=== PATIENT | female | born 1930 | race Hispanic/Latino ===

== ENCOUNTER 2016-08-14 13:36 | Emergency (ER) | payer MEDICARE, BC ==
[2016-08-14 13:37] VITALS: BMI 26.0
[2016-08-14 13:45] VITALS: TEMP 97.9
--- NOTE | 2016-08-14 13:55 | ED PDOC ---
Arrival/HPI - General Chief Complaint: Back Pain Time Seen by Provider: 08/14/16 13:43 Historian: Patient - History of Present Illness Time/Duration: Other (6 days) Symptom Onset: Gradual Symptom Course: Unchanged Quality: Aching Severity Level: Mild Associated Symptoms (Text): 08/14/16 13:53 Patient reports approximately 6 day history of bilateral lower back pain. No radiation of the pain. No abdominal pain nausea vomiting diarrhea. She has had intermittent constipation. No genitourinary symptoms. No numbness tingling or paresthesias. No weakness. No difficulty with gait. Reports that she was doing some exercises with a twisting motion of her lower back, and developed the pain several hours later. No direct blow. Past Medical History - Infectious Disease Hx of Infectious Diseases: None - Tetanus Immunization Tetanus Immunization: Unknown - Cardiac Hx Cardiac Disorders: Yes Hx Atrial Fibrillation: Yes (resolved, as per pt.) - Pulmonary Hx Respiratory Disorders: Yes Hx Chronic Obstructive Pulmonary Disease (COPD): Yes - Neurological Hx Neurological Disorder: No - HEENT Hx HEENT Disorder: No - Renal Hx Renal Disorder: No - Endocrine/Metabolic Hx Endocrine Disorders: Yes Hx Hyperthyroidism: Yes (graves disease) - Hematological/Oncological Hx Blood Disorders: No - Integumentary Hx Dermatological Disorder: No - Musculoskeletal/Rheumatological Hx Musculoskeletal Disorders: Yes Hx Arthritis: Yes - Gastrointestinal Hx Gastrointestinal Disorders: No - Genitourinary/Gynecological Hx Genitourinary Disorders: No - Psychiatric Hx Psychophysiologic Disorder: No Hx Substance Use: No - Surgical History Hx Parathyroidectomy: Yes Other/Comment: parathyroidectomy - Anesthesia Hx Anesthesia: Yes Hx Anesthesia Reactions: No Hx Malignant Hyperthermia: No - Suicidal Assessment Feels Threatened In Home Enviroment: No Family/Social History - Physician Review Nursing Documentation Reviewed: Yes Family/Social History: Unknown Family HX Smoking Status: Former Smoker (Quit smoking 9 years ago) Hx Alcohol Use: Yes Frequency of alcohol use: Socially Hx Substance Use: No Hx Substance Use Treatment: No Allergies/Home Meds Allergies/Adverse Reactions: Allergies No Known Allergies Allergy (Verified 08/14/16 13:44) Home Medications: Home Meds Medication Instructions Recorded Confirmed Methimazole 5 mg PO MWF 09/07/14 08/14/16 Tiotropium [place] [Spiriva] 18 mcg IH DAILY 09/07/14 08/14/16 Aspirin [Ecotrin] 81 mg PO DAILY 08/14/16 08/14/16 Review of Systems - Physician Review All systems were reviewed & negative as marked: Yes - Review of Systems Constitutional: Normal Respiratory: Normal Cardiovascular: Normal Gastrointestinal: Normal, Constipation Genitourinary Female: Normal Neurological: Normal Physical Exam Vital Signs Temp Pulse Resp BP Pulse Ox 08/14/16 14:55 81 16 103/68 98 08/14/16 13:45 97.9 F 88 20 104/69 93 L Temperature: Afebrile Blood Pressure: Normal Pulse: Regular Respiratory Rate: Normal Appearance: Positive for: Well-Appearing, Non-Toxic, Uncomfortable Pain Distress: Mild Mental Status: Positive for: Alert and Oriented X 3 - Systems Exam Head: Present: Atraumatic, Normocephalic Neck: Present: Normal Range of Motion Respiratory/Chest: Present: Clear to Auscultation, Good Air Exchange. No: Respiratory Distress, Accessory Muscle Use Cardiovascular: Present: Regular Rate and Rhythm, Normal S1, S2. No: Murmurs Abdomen: Present: Normal Bowel Sounds. No: Tenderness, Distention, Peritoneal Signs, Rebound, Guarding Back: Present: Normal Inspection, Pain with Leg Raise, Other (Pain with range of motion). No: CVA Tenderness, Midline Tenderness, Paraspinal Tenderness Upper Extremity: Present: Normal Inspection. No: Cyanosis, Edema Lower Extremity: Present: Normal Inspection. No: Edema Neurological: Present: GCS=15, CN II-XII Intact, Speech Normal, Motor Func Grossly Intact, Gait Normal Skin: Present: Warm, Dry, Normal Color. No: Rashes Medical Decision Making ED Course and Treatment: 08/14/16 14:[address] Hahn. Pain has improved post Toradol. Patient is scheduled for a colonoscopy next week in [facility]. We will avoid anti- inflammatories. Prescription for Ultram given. Follow up in ER as needed. Follow -up with PMD. - RAD Interpretation Radiology Orders: 08/14/16 13:51 LS SPINE WITH OBL > 18 YRS OLD [RAD] Stat Lumbosacral spine shows a compression fracture of L2, age indeterminant. DJD. 2Nd Pressman: ED Physician - Medication Orders Current Medication Orders: Discontinued Medications Ketorolac Tromethamine (Toradol) 15 mg IM ONCE ONE Stop: 08/14/16 13:53 Last Admin: 08/14/16 13:58 Dose: 15 mg Disposition/Present on Arrival - Present on Arrival Any Indicators Present on Arrival: No History of DVT/PE: No History of Uncontrolled Diabetes: No Urinary Catheter: No History of Decub. Ulcer: No History Surgical Site Infection Following: None - Disposition Have Diagnosis and Disposition been Completed?: Yes Diagnosis: Low back pain, Lumbar spine strain Disposition: HOME/ ROUTINE Disposition Time: 14:50 Patient Plan: Discharge Condition: IMPROVED Discharge Instructions (ExitCare): Acute Low Back Pain (ED) Additional Instructions: Rest and moist heat. Follow-up with PMD. Follow-up in the ER as needed. Prescriptions: Tramadol HCl [Ultram] 50 mg PO Q6 PRN #15 tab PRN Reason: Pain Referrals: Brook Hahn MD [Primary Care Provider] - Follow up with primary
--- NOTE | 2016-08-14 14:45 | RAD ---
PROCEDURE: Radiographs of the Lumbar Spine. HISTORY: pain COMPARISON: No prior. FINDINGS: BONES: There is reversal of normal lumbar lordosis. There is an age indeterminate superior endplate compression deformity in the L2 vertebral body with approximately 50 percent loss of vertebral height. No retropulsion. There is diffuse bone demineralization. DISC SPACES: There is multilevel degenerative disc disease with anterior osteophytes, reduced disc heights and multilevel facet arthropathy, worse at L4-5. OTHER FINDINGS: There atherosclerotic calcifications in the abdominal aorta. IMPRESSION: 1. Age indeterminate superior endplate compression deformity in the L2 vertebral body. 2. Multilevel degenerative disc disease, worse at L4-5.
[2016-08-14 14:56] VITALS: BP 103/68; PULSE 81; RESP 16; O2SAT 98
== END 2016-08-14 14:59 | disposition home or self-care (01) ==
LOC: ED 13:36
DX: S39.012A Strain of muscle, fascia and tendon of lower back, initial encounter (principal); X50.0XXA Overexertion from strenuous movement or load, initial encounter; Y93.B9 Activity, other involving muscle strengthening exercises; Y92.89 Other specified places as the place of occurrence of the external cause
CPT/HCPCS: 72110; 96372; 99283; J1885

== ENCOUNTER 2016-09-01 12:40 | Inpatient (IN) | payer MEDICARE, BC ==
[2016-09-01 12:40] VITALS: BMI 26.0
--- NOTE | 2016-09-01 13:48 | ED PDOC ---
Arrival/HPI - General Chief Complaint: Back Pain Time Seen by Provider: 09/01/16 13:02 Historian: Patient - History of Present Illness Narrative History of Present Illness (Text): 09/01/16 13:45 86 year old female presents to the emergency department with worsening left lower back pain. Patient states she was going to see her PMD but was unable to get there due to pain. She states she cannot move. Denies trauma or injury. Denies abdominal pain. Time/Duration: > week Symptom Onset: Gradual Symptom Course: Worsening Modifying Factors (Text): None Past Medical History - Provider Review Nursing Documentation Reviewed: Yes - Infectious Disease Hx of Infectious Diseases: None - Tetanus Immunization Tetanus Immunization: Unknown - Reproductive Menopause: Yes - Cardiac Hx Cardiac Disorders: Yes Hx Atrial Fibrillation: Yes (resolved, as per pt.) - Pulmonary Hx Respiratory Disorders: Yes Hx Chronic Obstructive Pulmonary Disease (COPD): Yes - Neurological Hx Neurological Disorder: No - HEENT Hx HEENT Disorder: No - Renal Hx Renal Disorder: No - Endocrine/Metabolic Hx Endocrine Disorders: Yes Hx Hyperthyroidism: Yes (graves disease) - Hematological/Oncological Hx Blood Disorders: No - Integumentary Hx Dermatological Disorder: No - Musculoskeletal/Rheumatological Hx Musculoskeletal Disorders: Yes Hx Arthritis: Yes - Gastrointestinal Hx Gastrointestinal Disorders: No - Genitourinary/Gynecological Hx Genitourinary Disorders: No - Psychiatric Hx Psychophysiologic Disorder: No Hx Substance Use: No - Surgical History Hx Parathyroidectomy: Yes Other/Comment: parathyroidectomy - Anesthesia Hx Anesthesia: Yes Hx Anesthesia Reactions: No Hx Malignant Hyperthermia: No - Suicidal Assessment Feels Threatened In Home Enviroment: No Family/Social History - Physician Review Nursing Documentation Reviewed: Yes Family/Social History: Unknown Family HX Smoking Status: Former Smoker Hx Alcohol Use: Yes Frequency of alcohol use: Socially Hx Substance Use: No Hx Substance Use Treatment: No Allergies/Home Meds Allergies/Adverse Reactions: Allergies No Known Allergies Allergy (Verified 08/14/16 13:44) Home Medications: Home Meds Medication Instructions Recorded Confirmed Methimazole 5 mg PO DAILY 09/07/14 09/01/16 Aspirin [Ecotrin] 81 mg PO DAILY 08/14/16 09/01/16 Tiotropium [Spiriva] 1 puff IH DAILY 09/01/16 09/01/16 Review of Systems - Physician Review All systems were reviewed & negative as marked: Yes - Review of Systems Cardiovascular: absent: Chest Pain Gastrointestinal: absent: Abdominal Pain Musculoskeletal: Back Pain Physical Exam Vital Signs Reviewed: Yes Vital Signs Temp Pulse Resp BP Pulse Ox 09/01/16 13:00 97.8 F 68 18 106/72 93 L Temperature: Afebrile Blood Pressure: Normal Pulse: Regular Respiratory Rate: Normal Appearance: Positive for: Well-Appearing, Non-Toxic, Uncomfortable Mental Status: Positive for: Alert and Oriented X 3 - Systems Exam Head: Present: Atraumatic, Normocephalic Pupils: Present: PERRL Extroacular Muscles: Present: EOMI Conjunctiva: Present: Normal Mouth: Present: Moist Mucous Membranes Neck: Present: Normal Range of Motion Respiratory/Chest: Present: Clear to Auscultation, Good Air Exchange. No: Respiratory Distress, Accessory Muscle Use Cardiovascular: Present: Regular Rate and Rhythm, Normal S1, S2. No: Murmurs Abdomen: Present: Normal Bowel Sounds. No: Tenderness, Distention, Peritoneal Signs Back: Present: Paraspinal Tenderness Upper Extremity: Present: Normal Inspection. No: Cyanosis, Edema Lower Extremity: Present: Normal Inspection. No: Edema Neurological: Present: GCS=15, CN II-XII Intact, Speech Normal Skin: Present: Warm, Dry, Normal Color. No: Rashes Psychiatric: Present: Alert, Oriented x 3, Normal Insight, Normal Concentration Medical Decision Making ED Course and Treatment: Impression: 86 year old female presents to the emergency department with worsening left lower back pain. Differential Diagnosis included but are not limited to: r/o compresion fx. Plan: -- CT's l-spine, t-spine -- Toradol -- Labs -- Reassess and disposition Prior Visits: Notes and results from previous visits were reviewed. Patient last seen in the ED on 08/14/16 for back pain and discharged home. Progress Notes: 09/01/16 18:[address] so bedside, will accept for obs for intractable pain - Lab Interpretations Lab Results: 09/01/16 13:51 09/01/16 16:26 Lab Results 09/01/16 16:26: Sodium 139, Potassium 5.0, Chloride 104, Carbon Dioxide 27, Anion Gap 13, BUN 11, Creatinine 0.8, Est GFR ( Amer) > 60, Est GFR (Non- Af Amer) > 60, Random Glucose 93, Calcium 9.9, Total Bilirubin 0.7, AST 26, ALT 27, Alkaline Phosphatase 88, Total Protein 6.6, Albumin 3.8, Globulin 2.8, Albumin/Globulin Ratio 1.4, Lipase 33 09/01/16 16:26: PT 11.0, INR 1.02, APTT 25.6 09/01/16 13:51: WBC 5.9, RBC 4.59, Hgb 14.7, Hct 43.0, MCV 93.7, MCH 32.0, MCHC 34.2, RDW 12.6, Plt Count 223, MPV 11.0, Gran % 67.1, Lymph % (Auto) 22.4, [place] % (Auto) 7.4 H, Eos % (Auto) 2.4, Baso % (Auto) 0.7, Gran # 3.99, Lymph # 1.3, [place] # 0.4, Eos # 0.1, Baso # 0.04 - RAD Interpretation Radiology Orders: 09/01/16 13:29 LUMBAR SPINE W/O CONTRAST [CT] Stat THORACIC SPINE W/O CONT [CT] Stat - Medication Orders Current Medication Orders: Gabapentin (Neurontin) 300 mg PO HS LETY PRN Reason: Protocol Discontinued Medications Cyclobenzaprine HCl (Flexeril) 10 mg PO HS STA Stop: 09/01/16 17:45 Methylprednisolone 500 mg/ (Sodium Chloride) 100 mls @ 200 mls/hr IVPB ONCE ONE Stop: 09/01/16 17:44 Ketorolac Tromethamine (Toradol) 30 mg IVP STAT STA Stop: 09/01/16 13:31 Last Admin: 09/01/16 13:47 Dose: 30 mg Ketorolac Tromethamine (Toradol) Confirm Administered Dose 30 mg .ROUTE .STK- MED ONE Stop: 09/01/16 13:38 Last Admin: 09/01/16 16:22 Dose: - Scribe Statement The provider has reviewed the documentation as recorded by the Christina Aguilar Provider Scribe Attestation: All medical record entries made by the Scribe were at my direction and personally dictated by me. I have reviewed the chart and agree that the record accurately reflects my personal performance of the history, physical exam, medical decision making, and the department course for this patient. I have also personally directed, reviewed, and agree with the discharge instructions and disposition. Disposition/Present on Arrival - Present on Arrival Any Indicators Present on Arrival: No History of DVT/PE: No History of Uncontrolled Diabetes: No Urinary Catheter: No History of Decub. Ulcer: No History Surgical Site Infection Following: None - Disposition Have Diagnosis and Disposition been Completed?: Yes Diagnosis: Back pain Disposition: HOSPITALIZED Disposition Time: 04:00 Condition: STABLE
[2016-09-01 13:53] LABS: ADD MANUAL DIFF? NO
[2016-09-01 13:55] LABS: BASO # 0.04 K/mm3 (0.0-2.0); BASO % 0.7 % (0.0-3.0); EOS # 0.1 (0.0-0.7); EOS % 2.4 % (1.5-5.0); GRAN # 3.99 (1.4-6.5); GRAN % 67.1 % (50.0-68.0); LYMPH # 1.3 (1.2-3.4); LYMPH % 22.4 % (22.0-35.0); MEAN CELL VOLUME 93.7 fL (80.0-105.0); MEAN CORPUSCULAR HGB CONC 34.2 g/dl (31.0-37.0); MONO # 0.4 (0.1-0.6); MONO % 7.4 % (1.0-6.0); PLATELET COUNT 223 10^3/uL (120.0-450.0); RED CELL DISTRIBUTION WIDTH 12.6 % (11.5-14.5); WHITE BLOOD COUNT 5.9 10^3/ul (4.5-11.0)
--- NOTE | 2016-09-01 15:04 | CT ---
PROCEDURE: CT scan thoracic spine 09/01/2016 HISTORY: Low back pain. COMPARISON: None. TECHNIQUE: Axial computed tomography images were obtained of the thoracic spine without intravenous contrast. Coronal and sagittal reformatted images were created and reviewed. Radiation dose: Total exam DLP = 338.16 mGy-cm. This CT exam was performed using one or more of the following dose reduction techniques: Automated exposure control, adjustment of the mA and/or kV according to patient size, and/or use of iterative reconstruction technique. FINDINGS: VERTEBRAE: Current study reveals no acute compression fractures no retropulsed fragments. Vertebral bodies. Minor chronic appearing anterior stature loss of several upper/mid thoracic segments felt to be degenerative in origin. There is also of few fish-mouth endplate deformities most pronounced along the inferior endplate of the T11 segment alum and to a lesser degree T12-L1 endplates. The probable hemangioma at T1 segment. DISCS/SPINAL CANAL/NEURAL FORAMINA: Mild multilevel degenerative spondylosis. Changes include varying degrees of disc space narrowing with small marginal anterior osteophytes formation, a few of which appear to be bridging. . There are no disc herniations nor significant disc bulges. The overall central bony canal appears adequate. Exit foramina appear adequate so far as can be seen. PARASPINAL SOFT TISSUES: Unremarkable. OTHER FINDINGS: Few small nonspecific mediastinal lymph nodes. Note made of left apical pleural thickening and nodular scarring. . Within this suspected area of scarring however there is an elliptical shaped somewhat central nodule that measures approximately 6.4 mm in greatest dimension consistent with a tiny anterior calcification. Note however that the possibility of developing scar carcinoma not excluded. . There is also a small septated bleb within peripheral nodular peripheral opacity right medial upper lung field Follow-up CT scan in 3 months could be performed to assess stability and exclude the possibility of underlying malignancy. Left adrenal nodule measuring approximately 18.8 mm. Followup at interval recommended to assess stability is well. IMPRESSION: No acute fractures. Minor multilevel degenerative spondylosis without evidence of significant canal compromise nor cord compression. Left apical pleural thickening with nodular parenchymal scarring ; the possibility of scar carcinoma not excluded. . Followup CT scan chest 3 months recommended to assess stability and exclude the possibility of developing malignancy. Note that these findings were discussed with Dr. Childers approximately 3:00 p.m. with written down and read back verification.
--- NOTE | 2016-09-01 16:12 | CT ---
PROCEDURE: CT Lumbar Spine without contrast HISTORY: low back pain COMPARISON: Comparison is made to the previous lumbar spine x-ray dated 08/14/2016 TECHNIQUE: Axial computed tomography images were obtained of the lumbar spine without the use of intravenous contrast. Coronal and sagittal reformatted images were created and reviewed. Radiation dose: Total exam DLP = 367.2 mGy-cm. This CT exam was performed using one or more of the following dose reduction techniques: Automated exposure control, adjustment of the mA and/or kV according to patient size, and/or use of iterative reconstruction technique. FINDINGS: VERTEBRAE: Again seen is moderate compression deformity at the superior endplate and midportion of L2 vertebral body. There is large Schmorl node and mild compression deformity at the inferior endplate of L4 vertebral body. Diffuse osteopenia is also noted. DISCS/SPINAL CANAL/NEURAL FORAMINA: L1-2: There is a small osteophyte disc bulging complex associated with posterior ligament and facet joint hypertrophy which resulting in mild spinal stenosis. L2-3: Small broad-based disc herniation associated with posterior ligament and facet joint hypertrophy which resulting in mild to moderate spinal and neural foramina narrowing bilaterally. L3-4: Small osteophyte disc bulging complex associated with posterior ligament and facet joint hypertrophy which resulting in [id number] spinal and mild bilateral neural foraminal narrowing. L4-5: Small osteophyte disc bulging complex associated with posterior ligament and facet joint hypertrophy which resulting in mild to moderate spinal and mild bilateral neural foraminal narrowing. L5-S1: Small disc bulging without evidence of significant spinal or neural foraminal narrowing. PARASPINAL SOFT TISSUES: Diffuse atherosclerotic disease noted. No evidence of acute pathology in the visualized portion of the paraspinal soft tissue. OTHER FINDINGS: None. IMPRESSION: Age indeterminate likely subacute or old compression deformity at the superior endplate of L2. Large Schmorl node and mild compression deformity at the inferior endplate of L4. Moderate multilevel spondylosis and multilevel osteophyte disc bulging complex associated with posterior ligament and facet joint hypertrophy which resulting in multilevel spinal and neural foraminal narrowing as described above. Moderate osteopenia.
[2016-09-01 16:52] LABS: ALB/GLOB RATIO 1.4 (1.1-1.8); ALKALINE PHOSPHATASE 88 U/L (38-133); ALT/SGPT 27 U/L (7-56); AST/SGOT 26 U/L (15-39); BILIRUBIN,TOTAL 0.7 mg/dL (0.2-1.3); BLOOD UREA NITROGEN 11 mg/dL (7-21); CALCIUM 9.9 mg/dL (8.4-10.5); CARBON DIOXIDE 27 mmol/L (21-33); CHLORIDE 104 mmol/L (98-107); GFR AFRICAN-AMERICAN > 60; GLUCOSE,RANDOM 93 mg/dL (70-110); LIPASE 33 U/L (23-300); SODIUM 139 mmol/L (132-148); TOTAL PROTEIN 6.6 g/dL (5.8-8.3)
[2016-09-01 16:55] LABS: INR 1.02 (0.93-1.08); PARTIAL THROMBOPLASTIN TIME 25.6 Seconds (23.7-30.8)
[2016-09-01] MEDS ORDERED: methylPREDNISolone 500 MG in Sodium Chloride 0.9% 100 ML IVPB ONE (17:43)
--- NOTE | 2016-09-01 18:32 | CON ---
DATE: 09/01/2016 CHIEF COMPLAINT: Low back pain. HISTORY OF PRESENT ILLNESS: This is an 86-year-old woman with history of hyperthyroidism on methimaz ole, history of COPD, history of atrial fibrillation in the past with history of chronic joint and ba ck pain, who presented with worsening lower back, especially radiating down the left leg with associa anil paresthesias aggravated by prolonged positions. The back pain was debilitating and therefore she came into the ER. She had a lumbar CAT scan which showed a moderate compression deformity at the moser perior endplate in the midportion of the L2 vertebral body and there is a large Schmorl's node and mi ld compression deformity at the inferior endplate of L4 vertebral body along with moderate multilevel and multilevel osteophyte disk bulge complex associated with facet joint hypertrophy and multi level spinal neural foraminal narrowing, especially from L3-L5. She had a CAT scan of the thoracic s pine which showed no acute fractures, just multilevel degenerative spondylosis without any evidence o f canal or cord compromise. Currently, she is doing much better. We will admit her for observation for IV steroids, to decrease the inflammatory part of the pain with IV Solu-Medrol and give her Neuro ntin 300 mg p.o. at bedtime for neuropathic pain instead of tramadol. PAST MEDICAL HISTORY: Hyperthyroidism, COPD, history of arthritis. ALLERGIES: No known drug allergies. SOCIAL HISTORY: No illicit drug use, smoking, or EtOH abuse. MEDICATIONS: Reviewed via nurse's reconciliation sheet. REVIEW OF SYSTEMS: A 14-point review of systems is negative except for the HPI. FAMILY HISTORY: Noncontributory. PHYSICAL EXAMINATION: VITAL SIGNS: Temperature 97.8, pulse rate of 68, blood pressure 106/72, respiratory rate of 18, oxyg en saturation 98% via room air. GENERAL: The patient is sitting up in bed in no acute distress. HEENT: Atraumatic, normocephalic. PERRLA. Extraocular muscles intact. NECK: Supple, no JVD, no adenopathy noted. LUNGS: Clear to auscultation. No adventitious sounds. HEART: S1, S2, normal rate and rhythm. No murmurs, rubs, or gallops. ABDOMEN: Soft, nontender, nondistended. Bowel sounds are present. EXTREMITIES: No clubbing, no cyanosis. Peripheral pulses 2+ felt bilaterally. NEUROLOGIC: The patient is alert, oriented to person, place, month and year. Speech is fluent, with out any errors. Cranial nerves II-XII intact. Motor: Slight increased tone throughout. Moves all extremities equally. No pronator drift seen. Sensory: Light touch, pinprick, proprioception and vi bration intact. DTRs are 2+ throughout and 1 at the knees bilaterally and ankles. Coordination: Fi [id number] intact. Gait is deferred for now. LABORATORY DATA: Sodium is 139, potassium 4.5, chloride of 104, carbon dioxide of 27, creatinine of 0.8. Random glucose 93. ASSESSMENT AND PLAN: This is an 86-year-old woman with history of chronic obstructive pulmonary dise ase on Spiriva, history of hyperthyroidism on methimazole and history of arthritis who presented with worsening lower left back pain radiating down the left leg with some paresthesias, aggravated by pro longed positions and sudden movements. She had a CAT scan of the lumbosacral spine which showed mode rate multilevel spondylosis and multilevel osteophyte disk bulging complex associated with posterior ligament and facet hypertrophy, which results in multilevel spinal neural foraminal narrowing ranging from L3-L5 mostly and moderate osteopenia, old compression deformity of the superior endplate of L2 and old mild compression deformity at the inferior endplate of L4, and a CAT scan of the thoracic spi ne showed just mild multilevel spondylosis without any cord compromise. At this time, we will admit her for observation for lumbosacral neuritis and recommend: 1. One dose of IV Solu-Medrol 500. 2. We will give her gabapentin 300 mg p.o. at bedtime. 3. We will also give her a muscle relaxant such as cyclobenzaprine 10 mg p.o. at bedtime for her rico k pain. 4. She will get outpatient physical and occupational therapy for underlying lumbosacral neuritis aft er deconditioned state. Thank you for this consult. Vamsi Collins MD cc: [id number] TT: 09/01/2016 18:31:15 Confirmation # [id number] Dictation # [id number] mn
--- NOTE | 2016-09-01 20:35 | HP ---
HISTORY OF PRESENT ILLNESS: This is an 86-year-old female brought to [facility] by her s on. She has been experiencing increasing back pain radiating down the left leg to the point where kiko aceves has been having difficulty managing and caring for herself at home. PAST MEDICAL HISTORY: She has a past medical history of paroxysmal atrial fibrillation, COPD, hypert hyroidism. ALLERGIES: She has got no known allergies. HOME MEDICATIONS: Consist of tramadol 50 mg q. 6 hours p.r.n., Spiriva 1 puff daily, methimazole 5 m g daily, and Ecotrin 81 mg daily. SOCIAL HISTORY: She is a nonsmoker, nondrinker, nondrug user. REVIEW OF SYSTEMS: Fourteen systems are reviewed. Pertinent findings as stated above in the history and physical. PHYSICAL EXAMINATION: VITAL SIGNS: Show a temp of 98.9, pulse is 68, blood pressure is 106/72, oxygen saturation is 93% on room air. GENERAL: She is alert and oriented x 3. NECK: Supple. LUNGS: Show diminished breath sounds at the bases. HEART: Has an S1, S2 rhythm. ABDOMEN: Soft with positive bowel sounds. EXTREMITIES: No evidence of edema. There is, as expressed by the patient, a tenderness along the lo wer lumbar spine, over the left flank and left gluteal area, with radiation down the leg. LABORATORY DATA: Shows a CBC: WBC is 5.9, RBC is 4.59, hemoglobin 14.7, hematocrit is 43, platelet count is 223. Her PT is 11 with an INR of 1.02. PTT is 25.6. Chemistries show electrolytes to be n ormal. Her BUN is 11, creatinine is 0.8. Liver functions are normal. Lipase is 33. DIAGNOSTIC DATA: The patient had a CT of the thoracic spine, which is read by the radiologist as regino wing a 6.4 mm elliptical shape, central nodule, in the left apical pleural thickening and multilevel degenerative spondylosis. No acute fractures. On the lumbar spine it is noted that there are old co mpression fractures at L2 and L4 with multilevel degenerative changes. IMPRESSION: Is an 86-year-old female with progressive increasing pain and difficulty managing and ca ring for herself at home secondary to the pain, with above noted findings. The patient required Naya dol in the Emergency Room for comfort. Will have the patient be seen by neurology. Plan on an infla mmatory pain management protocol. Brook Hahn MD cc: [id number] TT: 09/01/2016 20:34:57 dn
[2016-09-02] MEDS: methIMAzole 5 MG TAB PO SCH (09:44)
[2016-09-02] MEDS ORDERED: Tiotropium 18 mcg Cap For Inhalation IH SCH (10:00)
[2016-09-02 10:38] LABS: PH,URINE 5.5 (4.7-8.0); URINE BILIRUBIN SMALL (NEGATIVE); URINE BLOOD TRACE-INTACT (NEGATIVE); URINE GLUCOSE (UA) NEGATIVE (NEGATIVE); URINE KETONE 15 mg/dL (NEGATIVE); URINE LEUKOCYTE ESTERASE NEGATIVE Leu/uL (NEGATIVE); URINE PROTEIN TRACE mg/dL (<30 mg/dL)
[2016-09-02 10:39] LABS: URINE APPEARANCE CLEAR (CLEAR); URINE COLOR YELLOW (YELLOW)
[2016-09-02 10:46] LABS: URINE CALCIUM OXALATE CRYSTALS FEW /hpf; URINE RBC 0 - 2 /hpf (0-2)
[2016-09-02 10:47] LABS: URINE BACTERIA MOD (NEG)
[2016-09-02] MEDS: Tiotropium 18 mcg Cap For Inhalation IH SCH (10:55)
[2016-09-02] MEDS ORDERED: methylPREDNISolone 500 MG in Sodium Chloride 0.9% 100 ML IVPB ONE (15:06)
--- NOTE | 2016-09-02 15:28 | PN ---
DATE: 09/02/2016 CHIEF COMPLAINT: Follow up for low back pain. SUBJECTIVE: The patient is seen and examined at bedside. Her low back pain was doing much better wi th 1 dose of IV steroids, though she still has intermittent back pain at this time, but no neuropathi c symptoms. She will be getting another dose of IV Solu-Medrol since she got significant relief and will need physical therapy evaluation prior to her discharge. PAST MEDICAL HISTORY: Hyperthyroidism, COPD, history of arthritis. ALLERGIES: No known drug allergies. SOCIAL HISTORY: No illicit drug use, smoking, or ETOH abuse. CURRENT MEDICATIONS: Reviewed via nurse's reconciliation sheet. REVIEW OF SYSTEMS: A 14-point review of systems negative except for the HPI. FAMILY HISTORY: Noncontributory. PHYSICAL EXAMINATION: VITAL SIGNS: Temperature 97.8, pulse rate 66, blood pressure 130/74, respiratory rate 18, oxygen sat uration 95% via room air. GENERAL: The patient is sitting up in bed in no acute distress. HEENT: Atraumatic, normocephalic. PERRLA. Extraocular muscles intact. NECK: Supple, no JVD, no adenopathy noted. LUNGS: Clear to auscultation. No adventitious sounds. HEART: S1, S2, normal rate and rhythm. No murmurs, rubs, or gallops. ABDOMEN: Soft, nontender, nondistended. Bowel sounds are present. EXTREMITIES: No clubbing. No cyanosis. Peripheral pulses 2+ felt bilaterally. NEUROLOGIC: The patient is alert, oriented to person, place, month and year. Speech is fluent witho ut any errors. Cranial nerves II-XII are intact. MOTOR: Slight increased tone throughout. Moves all extremities equally. No pronator drift seen. SENSORY: Light touch, pinprick, proprioception, and vibrations intact. DTRs 2+ throughout and 1 at the ankles and knees bilaterally. COORDINATION: [id number]-[id number] intact. GAIT: Deferred for now. LABORATORY DATA: Unremarkable. ASSESSMENT AND PLAN: This is an 86-year-old woman with history of chronic obstructive pulmonary dise ase, on Spiriva, history of hyperthyroidism on methimazole, and history of arthritis, who presented w ith worsening left lower back pain radiating down to the left buttock, down the left leg with some pa resthesias, aggravated by prolonged positions and sudden movements. CAT scan of the lumbosacral spin e showed multilevel spondylosis and multilevel osteophyte-disk bulging complexes associated with post erior ligament and facet hypertrophy which results in multilevel spinal and neural foraminal narrowin g ranged from L3-L5 and moderate osteopenia, old compression deformity at the superior endplate of L2 and old mild compression deformity at the inferior endplate of L4. CAT scan of the thoracic spine s howed multilevel mild spondylosis without any cord compromise. At this time, she does have evidence of lumbosacral neuritis which improved with 1 dose of IV Solu-Medrol and will be given another dose. Recommend: 1. One more round of IV Solu-Medrol 500. 2. Gabapentin continue 300 mg p.o. at bedtime for neuropathic pain relief. 3. Continue with cyclobenzaprine 10 mg at bedtime p.r.n. for back pain. 4. Will need physical and occupational therapy for underlying lumbosacral neuritis and deconditioned state and will need also PT/OT as an outpatient as well. Please discuss with case management for fu rther outpatient facilities for physical therapy. Thank you for this followup. She can follow me as an outpatient. Vamsi Collins MD cc: [id number] TT: 09/02/2016 15:28:17 Confirmation # [id number] Dictation # [id number] tn
--- NOTE | 2016-09-02 18:49 | PN ---
DATE: 09/02/2016 An 86-year-old female who lives alone at home and brought to [facility] because of intractable back pain and inability for several days to care for herself. Nurses state that there were no partic ular problems during the night. The patient states that she is slightly more comfortable than she wa s the day before. PHYSICAL EXAMINATION: VITAL SIGNS: Temp is 97.7, her blood pressure is 107/53, oxygen saturation is 93% on room air. GENERAL: She is alert and oriented x 3. LUNGS: Clear. HEART: Regular S1, S2 rhythm. ABDOMEN: Soft with positive bowel sounds. EXTREMITIES: Show no evidence of edema. Urinalysis showed moderate bacteria. Will request a urine culture. Discussion with neurology. The patient will receive another dose of methylprednisolone. Physical therapy evaluation is pending. I have also discussed with the patient her CT findings and the dorsal CT study which showed areas of th e lung with a possible nodule. She has agreed to rule out getting a pulmonary opinion while she is h ere in the hospital. She states that she still does not feel comfortable enough to be on her own and will continue current level of care at this time. Brook Hahn MD cc: [id number] TT: 09/02/2016 18:48:39 Confirmation # [id number] Dictation # [id number] darryn
--- NOTE | 2016-09-03 09:38 | CON ---
DATE: 09/03/2016 REASON FOR CONSULTATION: Pulmonary nodule. REFERRING PHYSICIAN: Dr. Hahn. HISTORY OF PRESENT ILLNESS: The patient is an 86-year-old female with past medical history significant for chronic obstructive pulmonary disease, positive extensive smoking history, chronic back pain, who presents to [facility]] with worsening/intractable back pain for the past 2 days. In the Emergency Room, the patient stated that she had trouble ambulating. She was thus admitted for additional evaluation and treatment. There is no history of shortness of breath at rest or dyspnea on exertion. There is a history of chronic cough with minimal sputum production -- which has not changed recently. There is no history of chest pain, coughing up of blood or chest pain -- made worse with deep respirations. There is no history of temperatures, chills or infectious exposure. There is no history of night sweats, weight loss or appetite change prior to the above events. No history of calf pains. No history of syncope or diaphoresis. No history of recent travel. REVIEW OF SYSTEMS: No history of nausea, vomiting or diarrhea. No acute urinary symptoms. Rest of the review of systems is negative. ALLERGIES: No known allergies. SOCIAL HISTORY: Positive for extensive tobacco usage -- stopped 8 years ago. No alcohol. FAMILY HISTORY: No inheritable diseases. HOME MEDICATIONS: Include Ultram, Spiriva, methimazole, Ecotrin. PHYSICAL EXAMINATION: GENERAL: The patient appears comfortable at rest. She is not short of breath. She is not using accessory muscles for breathing. VITAL SIGNS: Temperature is 97.7, pulse 60, respirations 18, blood pressure 107 /53. Oxygen saturation on room air is 93-95%. HEENT: Normocephalic, atraumatic. NECK: No JVD. CARDIOVASCULAR: Systolic ejection murmur at the lower left sternal border. No S3 gallop. LUNGS: Clear bilaterally. EXTREMITIES: No clubbing, cyanosis, or edema. Calves are nontender to palpation. GASTROINTESTINAL: Abdomen is soft, nontender, nondistended. Bowel sounds are positive. SKIN: No acute rash. NEUROLOGIC: Limited at the present time. PERTINENT LABORATORY DATA: Thoracic spine CAT scan was done. On this CAT scan , there is a small area of scar/nodule in the left apex. There are no other significant abnormalities seen. Lumbar spine without contrast was also done. There are compression deformities in some of the lumbar vertebrae. CBC: White count 5.9, hemoglobin 14.7, hematocrit 43.0, platelets of 223. Complete metabolic profile is completely within normal limits. IMPRESSION: 1. Left apical nodule/scar. 2. Chronic obstructive pulmonary disease. 3. Intractable back pain. 4. Compression deformities -- lumbar vertebrae. PLAN: The patient presents to [facility]3] with a 2-day history of intractable back pain. She also had trouble ambulating at home. She was thus admitted for additional evaluation. As above, a thoracic spine CAT scan was done. On this CAT scan, a left apical nodule/scar was noted. I will order a dedicated CAT scan of the chest -- for further evaluation. On physical exam, the patient's lungs are clear. There is no significant alveolar arterial gradient. I will continue with the Spiriva for now. As above, the patient offers no new or significant pulmonary symptoms. I did discuss the CAT scan findings with the patient at length. The patient is well aware that I am ordering a dedicated CAT scan of the chest. I have also given the patient my number/information for followup with me-- as an outpatient. She fully agrees. I would continue with the neurologic evaluation and pain control. The patient is feeling better this morning. I will discuss the above with Dr. Hahn. Thank you very much for this pulmonary consultation. Wellington Greene MD cc: [id number] TT: 09/03/2016 09:37:13 Confirmation # [id number] Dictation # [id number] murphy MTDD
[2016-09-03] MEDS: Tiotropium 18 mcg Cap For Inhalation IH SCH (09:44)
[2016-09-03] MEDS: methIMAzole 5 MG TAB PO SCH (09:45)
--- NOTE | 2016-09-03 09:47 | PN ---
DATE: 09/03/2016 An 86-year-old female in bed this morning states that she is having still discomfort in her lower r[place] k. She feels that it is difficult to manipulate and get out of bed comfortably. Her son is at the [facility]. PHYSICAL EXAMINATION: VITAL SIGNS: Her temp is 98.1, her blood pressure is 132/60. Respiratory rate is 20, oxygen saturat ion 96% on room air. GENERAL: She is alert and oriented x 3. NECK: Supple. LUNGS: Clear. HEART: An S1, S2 rhythm. ABDOMEN: Soft with positive bowel sounds. EXTREMITIES: Show no evidence of edema. ASSESSMENT AND PLAN: The patient is receiving steroid therapy and pain management for underlying lum bar disk disease with compression fracture history. She was seen by pulmonary this morning who has r equested a CT of the chest because of an abnormality found on the x-ray. She has underlying history of chronic obstructive pulmonary disease and hyperthyroidism. Physical therapy has been asked to wor k with the patient and I discussed with the patient the fact that she does not feel comfortable leavi ng and caring for herself at this time. We will review further care with neurology. She is currently on Ultram 50 mg q. 6 p.r.n., Tapazole 5 mg daily, Spiriva 18 mcg daily, Pepcid 20 mg b.i.d. and Neurontin 300 mg at bedtime. Brook Hahn MD cc: [id number] TT: 09/03/2016 09:47:27 Confirmation # [id number] Dictation # [id number] tn
--- NOTE | 2016-09-03 10:37 | CT ---
PROCEDURE: CT Chest without contrast HISTORY: pulmonary nodules COMPARISON: None. TECHNIQUE: Contiguous axial images were obtained through the chest without intravenous contrast enhancement. Sagittal and coronal reconstructions were performed. Radiation dose (DLP): 357 mGy-cm. This CT exam was performed using one or more of the following dose reduction techniques: Automated exposure control, adjustment of the mA and/or kV according to patient size, and/or use of iterative reconstruction technique. FINDINGS: LUNGS: Diffuse mild centrilobular emphysema. MEDIASTINUM: Unremarkable thoracic aorta. No aneurysm. Normal sized heart. Main pulmonary artery unremarkable. No vascular congestion. No lymphadenopathy. PLEURA: No pleural fluid. No pneumothorax. BONES: No fracture. No destructive lesion. UPPER ABDOMEN: Grossly unremarkable. OTHER FINDINGS: None. IMPRESSION: Diffuse mild centrilobular emphysema.
--- NOTE | 2016-09-04 09:06 | PN ---
DATE: 09/04/2016 The patient was seen and examined at bedside. She reports no pulmonary complaints today. She is not short of breath and not coughing. PHYSICAL EXAMINATION: VITAL SIGNS: Her temperature is 98, pulse 60, respirations 18, blood pressure 110/60. Oxygen satura tion on room air is 94%. HEAD, EARS, NOSE AND THROAT: Within normal limits. NECK: Supple with no jugular vein distention. CHEST: Symmetrical. HEART: S1, S2. No S3. Regular. LUNGS: Few scattered rhonchi. No wheezing bilaterally. GASTROINTESTINAL: Soft, nontender with no organomegaly. SKIN: No acute skin rashes. NEUROLOGIC: Limited at present time. ASSESSMENT: 1. Left apical nodule/scar. 2. Chronic obstructive pulmonary disease. 3. Compression fractures of vertebrae. PLAN: The patient's chief complaint is back pain. It is most likely related to the compression frac tures. CT scan indicates the presence of apical nodule/scar. Currently, she is on Spiriva, doing we ll. Her chronic obstructive pulmonary disease is well controlled. After obtaining a dedicated CT sc an of chest, will decide if further workup or just radiologic workup is warranted for the left apical abnormalities. Willi Ch MD cc: [id number] TT: 09/04/2016 09:06:19 Confirmation # [id number] Dictation # [id number] mn
[2016-09-04] MEDS: methIMAzole 5 MG TAB PO SCH ×2 (09:17→09:28)
[2016-09-04] MEDS: Tiotropium 18 mcg Cap For Inhalation IH SCH (09:19)
--- NOTE | 2016-09-04 18:02 | PN ---
DATE: 09/04/2016 This is an 86-year-old female in bed this morning. Nursing staff relates that there were no particul ar problems during the night. The patient states that she is still having some back pain and finds s ome difficulty in being independent. PHYSICAL EXAMINATION: VITAL SIGNS: Her temp is 97, her blood pressure is 114/60, pulse is 60. Oxygen saturation 94% on ro om air. GENERAL: She is alert and oriented x 3. NECK: Supple. There is no JVD. LUNGS: Clear. HEART: Regular S1, S2 rhythm. ABDOMEN: Soft with positive bowel sounds. EXTREMITIES: No evidence of edema. ASSESSMENT AND PLAN: The patient is on pain management and muscle relaxer for compression fractures of the lumbar spine with degenerative disk disease. She is being followed by pulmonary for a scar in the left apical lung area based on CAT scan and will plan to follow up with pulmonary. She is recei ving respiratory treatments for her chronic obstructive pulmonary disease. We will continue current care with physical therapy. We will discuss with family support structure upon patient leaving the h ospital and level of independence will determine whether the patient can be at home alone or will nee d assistance, or will have to live with family members. Brook Hahn MD cc: [id number] TT: 09/04/2016 18:01:34 Confirmation # [id number] Dictation # [id number] mode
[2016-09-05 07:37] VITALS: BP 138/86; PULSE 62; RESP 20; TEMP 97.8; O2SAT 96
[2016-09-05] MEDS: methIMAzole 5 MG TAB PO SCH (09:38)
[2016-09-05 09:43] LABS: URINE BILIRUBIN NEGATIVE (NEGATIVE); URINE BLOOD NEGATIVE (NEGATIVE); URINE GLUCOSE (UA) NEGATIVE (NEGATIVE); URINE KETONE NEGATIVE (NEGATIVE); URINE LEUKOCYTE ESTERASE TRACE Leu/uL (NEGATIVE); URINE PROTEIN NEGATIVE mg/dL (<30 mg/dL); URINE UROBILINOGEN 0.2 E.U./dL (<1 E.U./dL)
[2016-09-05 09:45] LABS: URINE APPEARANCE CLEAR (CLEAR); URINE COLOR YELLOW (YELLOW)
[2016-09-05] MEDS: Tiotropium 18 mcg Cap For Inhalation IH SCH (09:45)
[2016-09-05 09:54] LABS: URINE RBC 0 - 2 /hpf (0-2); URINE WBC 0 - 2 /hpf (0-6)
[2016-09-05 09:55] LABS: URINE BACTERIA FEW (NEG)
== END 2016-09-05 15:35 | disposition home or self-care (01) | DRG 552 ==
LOC: ED 12:40 → ERH 16:58 → 5RNO 20:15 → OBSVTOIN 09-02 16:14
PROVIDERS: ADMIT Internal Medicine; ATTEND Internal Medicine
DX: M51.16 Intervertebral disc disorders with radiculopathy, lumbar region (principal); M48.56XA Collapsed vertebra, not elsewhere classified, lumbar region, initial encounter for fracture; M47.894 Other spondylosis, thoracic region; I48.0 Paroxysmal atrial fibrillation; J44.9 Chronic obstructive pulmonary disease, unspecified; E05.00 Thyrotoxicosis with diffuse goiter without thyrotoxic crisis or storm; R91.1 Solitary pulmonary nodule; Z87.891 Personal history of nicotine dependence; Z79.82 Long term (current) use of aspirin

== ENCOUNTER 2017-08-17 18:24 | Inpatient (IN) | payer MEDICARE, BC ==
[2017-08-17 18:25] VITALS: BMI 26.0
[2017-08-17] MEDS ORDERED: Levalbuterol 1.25 MG/3 ML Inhal Soln UD IH STA (19:00)
--- NOTE | 2017-08-17 19:06 | ED PDOC ---
Arrival/HPI - General Historian: Patient - History of Present Illness Symptom Onset: Gradual Symptom Course: Improving - General Chief Complaint: Weakness/Neurological Deficit Time Seen by Provider: 08/17/17 18:25 - History of Present Illness Narrative History of Present Illness (Text): 08/17/17 19:01 Pt is an 87 yo F with PMH of paroxysmal atrial fibrillation, COPD, and hyperthyroidism presents to ED with a 5 day history of SOB, productive cough, and fatigue. Patient states that cough is productive with green phlegm. Patient reports one fever 4 days ago at 100.8 F. Patient states that she was prescribed Levaquin with some improvement of her symptoms. Patient was scheduled to see her PMD, Dr. Hahn, today, but could not make it due to fatigue. Patient states that she is short of breath with any activity and has a difficult time ambulating. At baseline, patient states she is able to walk without any shortness of breath. Patient was previously on metoprolol and eliquis for a. fib , but was taken off about 1 year ago once her thyroid function normalized on methimazole. Methamizole was discontinued about 1 year ago. Currently, patient denies any CP, n/v/d, abdominal pain, fever, chills, DIAZ, or dizziness. PMD: Brook Hahn 08/17/17 20:46 (Fredrick Rodriguez) Past Medical History - Provider Review Nursing Documentation Reviewed: Yes - Infectious Disease Hx of Infectious Diseases: None - Tetanus Immunization Tetanus Immunization: Unknown - Cardiac Hx Cardiac Disorders: Yes Hx Atrial Fibrillation: Yes - Pulmonary Hx Respiratory Disorders: Yes Hx Chronic Obstructive Pulmonary Disease (COPD): Yes - Neurological Hx Neurological Disorder: No - HEENT Hx HEENT Disorder: No - Renal Hx Renal Disorder: No - Endocrine/Metabolic Hx Endocrine Disorders: Yes Hx Hyperthyroidism: Yes (graves disease) - Hematological/Oncological Hx Blood Disorders: No - Integumentary Hx Dermatological Disorder: No - Musculoskeletal/Rheumatological Hx Musculoskeletal Disorders: Yes Hx Arthritis: Yes - Gastrointestinal Hx Gastrointestinal Disorders: No - Genitourinary/Gynecological Hx Genitourinary Disorders: No - Psychiatric Hx Psychophysiologic Disorder: No Hx Substance Use: No - Surgical History Hx Parathyroidectomy: Yes Other/Comment: parathyroidectomy - Anesthesia Hx Anesthesia: Yes Hx Anesthesia Reactions: No Hx Malignant Hyperthermia: No - Suicidal Assessment Feels Threatened In Home Enviroment: No Family/Social History - Physician Review Nursing Documentation Reviewed: Yes Family/Social History: No Known Family HX Smoking Status: Former Smoker Hx Alcohol Use: Yes Hx Substance Use: No Hx Substance Use Treatment: No Allergies/Home Meds Allergies/Adverse Reactions: Allergies Penicillins Allergy (Verified 08/17/17 18:26) RASH Home Medications: Home Meds Medication Instructions Recorded Confirmed Aspirin [Ecotrin] 81 mg PO DAILY 08/14/16 08/17/17 Tiotropium [Spiriva] 1 puff IH DAILY 09/01/16 08/17/17 Review of Systems - Physician Review All systems were reviewed & negative as marked: Yes (12 point ROS reviewed and is negative other than what is stated in HPI.) Physical Exam Vital Signs Reviewed: Yes Temperature: Afebrile Blood Pressure: Normal Pulse: Tachycardic Respiratory Rate: Normal Appearance: Positive for: Non-Toxic Pain Distress: None Mental Status: Positive for: Alert and Oriented X 3 - Systems Exam Head: Present: Atraumatic, Normocephalic Pupils: Present: PERRL Extroacular Muscles: Present: EOMI Conjunctiva: Present: Normal Mouth: Present: Moist Mucous Membranes Neck: Present: Normal Range of Motion Respiratory/Chest: Present: Wheezes, Rales (b/l bases), Rhonchi. No: Clear to Auscultation, Respiratory Distress, Accessory Muscle Use Cardiovascular: Present: Irregular Rhythm, Tachycardic. No: Murmurs, Rub, Gallop Abdomen: No: Tenderness, Distention, Rebound, Guarding Back: Present: Normal Inspection Upper Extremity: Present: Normal Inspection. No: Cyanosis, Edema Lower Extremity: Present: Normal Inspection. No: Edema Neurological: Present: GCS=15, CN II-XII Intact, Speech Normal Skin: Present: Warm, Dry, Normal Color. No: Rashes Psychiatric: Present: Alert, Oriented x 3, Normal Insight, Normal Concentration Vital Signs Temp Pulse Resp BP Pulse Ox 08/17/17 21:19 97.6 F 117 H 18 119/56 L 95 08/17/17 20:13 118/52 L 08/17/17 20:09 97.6 F 108 H 20 118/52 L 95 08/17/17 19:32 97.6 F 87 18 103/65 99 08/17/17 19:18 108 H 129/54 L 08/17/17 18:27 97.6 F 110 H 17 125/83 91 L Medical Decision Making ED Course and Treatment: 08/17/17 19:09 87 yo F presents to ED with SOB, productive cough, and fatigue. Plan: - CBC, CMP, Coags - Cardiac Iso - BNP - TSH, Free T4 - CXR - EKG - UA - Cardizem IVP - Xopenex - Solumedrol - Reassess and disposition EKG reviewed, showed atrial fibrillation with rapid ventricular response. Rate 160. 08/17/17 20:02 CXR reviewed by myself showed no active disease. BNP 4300, Lasix 20 mg IVP given. CHADSVASC 4. Therapeutic lovenox given. Patient was discussed with Dr. Brook Hahn, who agrees with plan and accepts admission under his service. Dr. Hahn requests ICU evaluation. Discussed patient with Dr. Flor Victor, who will evaluate patient for ICU admission. residential program manager was notified. 08/17/17 22:20 Dr. Victor accepts patient to ICU. (Fredrick Rodriguez) 08/18/17 20:46 pt seen with resident. afib with rvr. chf, copd. accepted by icu. (Tino Childers ) - Lab Interpretations Lab Results: 08/17/17 19:25 08/17/17 19:25 Lab Results 08/17/17 19:25: Free T4 4.54 H, TSH 3rd Generation < 0.02 L 08/17/17 19:25: Sodium 142, Potassium 4.8, Chloride 101, Carbon Dioxide 28, Anion Gap 17, BUN 18, Creatinine 0.7, Est GFR ( Amer) > 60, Est GFR (Non- Af Amer) > 60, Random Glucose 114 H, Calcium 9.6, Magnesium 1.9, Total Bilirubin 0.6, AST 39 H, ALT 30, Alkaline Phosphatase 102, Lactate Dehydrogenase 345, Total Creatine Kinase 35, Troponin I < 0.01, NT-Pro-B Natriuret Pep 4300 H, Total Protein 6.6, Albumin 3.6, Globulin 2.9, Albumin/ Globulin Ratio 1.2 08/17/17 19:25: PT 14.5 H, INR 1.27 H, APTT 25.0 L 08/17/17 19:25: WBC 8.1 D, RBC 4.79, Hgb 14.6, Hct 42.7, MCV 89.1 D, MCH 30.5 , MCHC 34.2, RDW 11.6, Plt Count 272, MPV 10.6, Gran % 75.6 H, Lymph % (Auto) 12.4 L, [place] % (Auto) 11.6 H, Eos % (Auto) 0.2 L, Baso % (Auto) 0.2, Gran # 6.14 , Lymph # (Auto) 1.0 L, [place] # (Auto) 0.9 H, Eos # (Auto) 0.0, Baso # (Auto) 0.02 - RAD Interpretation Radiology Orders: 08/17/17 18:55 CHEST PORTABLE [RAD] Stat - Medication Orders Current Medication Orders: Aspirin (Ecotrin) 81 mg PO DAILY [facility] Last Admin: 08/18/17 09:10 Dose: 81 mg Diltiazem HCl (Cardizem) 30 mg PO Q6H [facility] Last Admin: 08/18/17 15:51 Dose: 30 mg MAR Pulse and Blood Pressure Document 08/18/17 15:51 [facility] (Rec: 08/18/17 15:51 [facility] [place]) Pulse Pulse Rate (60-90) 86 Blood Pressure Blood Pressure (100/60-150/90) 126/56 Enoxaparin Sodium (Lovenox) 65 mg SC BID [facility] PRN Reason: Protocol Last Admin: 08/18/17 17:27 Dose: 65 mg Subcutaneous Administrations Document 08/18/17 17:27 [facility] (Rec: 08/18/17 17:27 [facility] [id number]) Injection Site MAR Injection Site Right Arm Charges for Administration # of Subcutaneous Administrations 1 Levalbuterol HCl (Xopenex) 1.25 mg IH TIDRESP [facility] Last Admin: 08/18/17 19:44 Dose: 1.25 mg Levalbuterol HCl (Xopenex) 1.25 mg IH [id number] PRN PRN Reason: Shortness of Breath Methylprednisolone (Solu-Medrol) 40 mg IVP Q12 [facility] Last Admin: 08/18/17 09:10 Dose: 40 mg IVP Administration Document 08/18/17 09:10 [facility] (Rec: 08/18/17 09:10 [facility] [place]) Charges for Administration # of IVP Administrations 1 Metoprolol Tartrate (Lopressor) 25 mg PO BID [facility] Last Admin: 08/18/17 17:27 Dose: 25 mg MAR Pulse and Blood Pressure Document 08/18/17 17:27 [facility] (Rec: 08/18/17 17:27 [facility] [id number]) Pulse Pulse Rate (60-90) 91 Blood Pressure Blood Pressure (100/60-150/90) 126/75 Propylthiouracil (Propylthiouracil) 100 mg PO TID [facility] Last Admin: 08/18/17 17:27 Dose: 100 mg Discontinued Medications Diltiazem HCl (Cardizem) 15 mg IVP STAT STA Stop: 08/17/17 19:01 Last Admin: 08/17/17 19:18 Dose: 15 mg IVP Administration Document 08/17/17 19:18 [facility] (Rec: 08/17/17 19:19 [facility] [id number]) Charges for Administration # of IVP Administrations 1 MAR Pulse and Blood Pressure Document 08/17/17 19:18 [facility] (Rec: 08/17/17 19:19 [facility] [id number]) Pulse Pulse Rate (60-90) 108 Blood Pressure Blood Pressure (100/60-150/90) 129/54 Diltiazem HCl (Cardizem) 10 mg IVP STAT STA Stop: 08/18/17 09:02 Last Admin: 08/18/17 09:07 Dose: 10 mg IVP Administration Document 08/18/17 09:07 [facility] (Rec: 08/18/17 09:08 [facility] Charges for Administration # of IVP Administrations 1 MAR Pulse and Blood Pressure Document 08/18/17 09:07 [facility] (Rec: 08/18/17 09:08 [id number] Pulse Pulse Rate (60-90) 162 Blood Pressure Blood Pressure (100/60-150/90) 116/81 Enoxaparin Sodium (Lovenox) 65 mg SC STAT [facility] PRN Reason: Protocol Stop: 08/17/17 19:57 Last Admin: 08/17/17 20:05 Dose: 65 mg Subcutaneous Administrations Document 08/17/17 20:05 [facility] (Rec: 08/17/17 20:06 [facility] [id number]) Injection Site MAR Injection Site Left Abdomen Charges for Administration # of Subcutaneous Administrations 1 Enoxaparin Sodium (Lovenox) 65 mg SC DAILY [facility] PRN Reason: Protocol Furosemide (Lasix) 20 mg IVP STAT STA Stop: 08/17/17 19:56 Last Admin: 08/17/17 20:13 Dose: 20 mg MAR Blood Pressure Document 08/17/17 20:13 [facility] (Rec: 08/17/17 20:14 [facility] [id number]) Blood Pressure Blood Pressure (100/60-150/90) 118/52 IVP Administration Document 08/17/17 20:13 [facility] (Rec: 08/17/17 20:14 [facility] [id number]) Charges for Administration # of IVP Administrations 1 Levalbuterol HCl (Xopenex) 1.25 mg IH STAT STA Stop: 08/17/17 19:01 Last Admin: 08/17/17 19:18 Dose: 1.25 mg Methylprednisolone (Solu-Medrol) 125 mg IVP STAT STA Stop: 08/17/17 19:01 Last Admin: 08/17/17 19:19 Dose: 125 mg IVP Administration Document 08/17/17 19:19 [facility] (Rec: 08/17/17 19:19 [facility] [id number]) Charges for Administration # of IVP Administrations 1 Propranolol HCl (Inderal) 10 mg PO TID [facility] Last Admin: 08/18/17 09:10 Dose: 10 mg MAR Pulse and Blood Pressure Document 08/18/17 09:10 [facility] (Rec: 08/18/17 09:10 [id number] [id number] Pulse Pulse Rate (60-90) 151 Blood Pressure Blood Pressure (100/60-150/90) 116/81 Disposition/Present on Arrival - Present on Arrival Any Indicators Present on Arrival: No History of DVT/PE: No History of Uncontrolled Diabetes: No Urinary Catheter: No History of Decub. Ulcer: No History Surgical Site Infection Following: None - Disposition Have Diagnosis and Disposition been Completed?: Yes Disposition Time: 22:21 Patient Plan: ICU - Disposition Diagnosis: Atrial fibrillation with rapid ventricular response, COPD exacerbation, CHF ( congestive heart failure) Disposition: HOSPITALIZED Condition: STABLE
[2017-08-17 19:31] LABS: BASO # 0.02 K/mm3 (0.0-2.0); BASO % 0.2 % (0.0-3.0); EOS % 0.2 % (1.5-5.0); GRAN # 6.14 (1.4-6.5); GRAN % 75.6 % (50.0-68.0); HEMOGLOBIN 14.6 g/dL (12.0-16.0); LYMPH % 12.4 % (22.0-35.0); MEAN CELL VOLUME 89.1 fl (80.0-105.0); MEAN CORPUSCULAR HEMOGLOBIN 30.5 pg (25.0-35.0); MEAN CORPUSCULAR HGB CONC 34.2 g/dl (31.0-37.0); MEAN PLATELET VOLUME 10.6 fl (7.0-11.0); MONO # 0.9 (0.1-0.6); MONO % 11.6 % (1.0-6.0); RBC 4.79 10^6/uL (3.5-6.1); RED CELL DISTRIBUTION WIDTH 11.6 % (11.5-14.5); WHITE BLOOD COUNT 8.1 10^3/ul (4.5-11.0)
[2017-08-17 19:42] LABS: ALB/GLOB RATIO 1.2 (1.1-1.8); ALBUMIN 3.6 g/dL (3.0-4.8); ALT/SGPT 30 U/L (7-56); AST/SGOT 39 U/L (14-36); BLOOD UREA NITROGEN 18 mg/dL (7-21); CALCIUM 9.6 mg/dL (8.4-10.5); GFR AFRICAN-AMERICAN > 60; GFR NON-AFRICAN AMERICAN > 60
[2017-08-17 19:44] LABS: INR 1.27 (0.93-1.08); PROTHROMBIN TIME 14.5 SECONDS (9.4-12.5)
[2017-08-17 19:54] LABS: B-TYPE NATRIURETIC PEPTIDE 4300 pg/mL (0-450); TROPONIN I < 0.01 ng/mL
[2017-08-17] MEDS ORDERED: Enoxaparin 80 mg Syringe SC STA (19:56)
[2017-08-17 20:10] LABS: FREE T4 4.54 ng/dL (0.78-2.19)
[2017-08-17 21:17] LABS: URINE BILIRUBIN NEGATIVE (NEGATIVE); URINE BLOOD NEGATIVE (NEGATIVE); URINE GLUCOSE (UA) NEGATIVE (NEGATIVE); URINE LEUKOCYTE ESTERASE NEGATIVE Leu/uL (NEGATIVE); URINE PROTEIN NEGATIVE mg/dL (<30 mg/dL); URINE UROBILINOGEN 0.2 E.U./dL (<1 E.U./dL)
[2017-08-17 21:18] LABS: URINE APPEARANCE CLEAR (CLEAR); URINE COLOR COLORLESS (YELLOW)
--- NOTE | 2017-08-17 21:23 | CP.PCM.CON ---
History of Present Illness - History of Present Illness History of Present Illness: HPI: Patient is an 87 year old female with a past medical history of COPD, hyperthyroidism, A Fib, and narrow angle glaucoma, who presents to the ED complaining of fatigue of 2 weeks duration with associated cough productive of green sputum and SOB for the last 5 days and temperature of 100.8. Patient says when she first started feeling fatigued she though that maybe this was her hyperthyroidism causing the issue so she went to see her shank cementer hand, Dr. Doretha Todd, on August 06. Patient was previously on methimazole for this but was taken off about 1 year ago because of elevated liver enzymes. When she went to see her shank cementer hand, the plan was to do ablation and start her on levothyroxine. Patient says she has not made the appointment yet due to feeling poorly, but planned to see her PMD, Dr. Hahn, last week. Patient says she was feeling too tired to go to her appointment [facility] said [facility] her symptoms but they have not resolved, so she decided to come to the ED to be evaluated. In the ED, patient was found to be in A Fib with RVR. Patient says she had a history of this back when she was having thyroid problems but once the thyroid was controlled so was her AFib, so she was taken off of metoprolol and eliquis after just 6 months. Currently, patient admits t osome mild lower extremity swelling due to venous insufficiency , but otherwise denies fever, chills, headache, dizziness, changes in vision/ hearing, focal weakness, numbness/tingling, dysarthria, facial dropping, chest pain, palpitations, abdominal pain, nausea, vomiting, diarrhea, constipation, hematochezia/melena, changes in urination, lower extremity pain, recent travel, and sick contacts. PMD: Dr. Hahn Binder Operator: Dr. 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), rare alcohol use, denies elicit drug use Review of Systems - Review of Systems All systems: reviewed and no additional remarkable complaints except (as per HPI ) Past Patient History - Infectious Disease Hx of Infectious Diseases: None - Tetanus Immunizations Tetanus Immunization: Unknown - Past Social History Smoking Status: Former Smoker - CARDIAC Hx Cardiac Disorders: Yes Hx Atrial Fibrillation: Yes - PULMONARY Hx Respiratory Disorders: Yes Hx Chronic Obstructive Pulmonary Disease (COPD): Yes - NEUROLOGICAL Hx Neurological Disorder: No - HEENT Hx HEENT Problems: No - RENAL Hx Chronic Kidney Disease: No - ENDOCRINE/METABOLIC Hx Endocrine Disorders: Yes Hx Hyperthyroidism: Yes (graves disease) - HEMATOLOGICAL/ONCOLOGICAL Hx Blood Disorders: No - INTEGUMENTARY Hx Dermatological Problems: No - MUSCULOSKELETAL/RHEUMATOLOGICAL Hx Musculoskeletal Disorders: Yes Hx Arthritis: Yes - GASTROINTESTINAL Hx Gastrointestinal Disorders: No - GENITOURINARY/GYNECOLOGICAL Hx Genitourinary Disorders: No - PSYCHIATRIC Hx Psychophysiologic Disorder: No Hx Substance Use: No - SURGICAL HISTORY Hx Parathyroidectomy: Yes Other/Comment: parathyroidectomy - ANESTHESIA Hx Anesthesia: Yes Hx Anesthesia Reactions: No Hx Malignant Hyperthermia: No Meds Allergies/Adverse Reactions: Allergies Allergy/AdvReac Type Severity Reaction Status Date / Time Penicillins Allergy RASH Verified 08/17/17 18:26 Physical Exam - Constitutional Appears: Non-toxic, No Acute Distress - Head Exam Head Exam: ATRAUMATIC, NORMAL INSPECTION, NORMOCEPHALIC - Eye Exam Eye Exam: EOMI, Normal appearance, PERRL - ENT Exam ENT Exam: Mucous Membranes Moist, Normal Exam - Neck Exam Neck exam: Positive for: Normal Inspection. Negative for: Lymphadenopathy, Tenderness - Respiratory Exam Respiratory Exam: Rales, Rhonchi, NORMAL BREATHING PATTERN. absent: Accessory Muscle Use, Wheezes, Respiratory Distress, Stridor - Cardiovascular Exam Cardiovascular Exam: Tachycardia, Irregular Rhythm, +S1, +S2. absent: Diastolic murmur, Gallop, JVD, Rubs, Systolic Murmur - GI/Abdominal Exam GI & Abdominal Exam: Normal Bowel Sounds, Soft. absent: Distended, Tenderness - Extremities Exam Extremities exam: Positive for: normal capillary refill, normal inspection, pedal edema (mild, nonpitting), pedal pulses present. Negative for: calf tenderness - Neurological Exam Neurological exam: Alert, CN II-XII Intact, Oriented x3 - Psychiatric Exam Psychiatric exam: Normal Affect, Normal Mood - Skin Skin Exam: Dry, Intact, Normal Color, Warm Results - Vital Signs Recent Vital Signs: Last Vital Signs Temp 97.6 F 08/17/17 20:09 Pulse 108 H 08/17/17 20:09 Resp 20 08/17/17 20:09 BP 118/52 L 08/17/17 20:13 Pulse Ox 95 08/17/17 20:09 - Labs Result Diagrams: 08/17/17 19:25 08/17/17 19:25 Assessment & Plan - Assessment and Plan (Free Text) Assessment: Patient is an 87 year old female with a past medical history of COPD, hyperthyroidism, A Fib, and narrow angle glaucoma, who presents with COPD exacerbation, hyperthyroidism and AFib with RVR. Plan: Neuro * A&Ox3 Cardio * [id number]: 3 (3.2% stroke risk) * HR ~115 bpm on exam * BP: 125/83 * CXR: no obvious cardiomegaly or consolidation per my read, will follow up official read * Cardizem 15 mg IV and therapeutic lovenox given in ED prior to exam * Propranolol 10 mg TID * Lovenox 65 mg SC daily * Continue home ASA 81 mg daily Respiratory * O2 sat 91% on RA upon admission * O2 via nasal cannula PRN * Xopenex LETY and PRN * Solu-medrol 40 mg Q12H Renal * BUN/Cr: 18/0.7 * Stable Fluids, Electrolytes, Nutrition * Electrolytes WNL - will monitor with morning labs * Nutrition: Heart healthy decaf diet Infectious disease * Tcurrent: 97.6 * WBC 8.1 Hematmology * H&H: 14.6/42.7 * Plts: 272 * PT/PTT/INR: 14.5/25/1.27 GI * AST/ALT: 39/30 * TBili: 0.6 Endocrine * TSH & Free T4: 0.02/4.54 * Binder Operator consulted (Dr. Walsh) - help appreciated * Called Dr. Todd upon admission with no answer ([phone]) Prophylaxis * DVT: Lovenox 65 mg SC daily, SCDs * GI: not indicated
[2017-08-17] MEDS ORDERED: Levalbuterol 1.25 MG/3 ML Inhal Soln UD IH PRN (21:51)
[2017-08-17] MEDS: MethylPREDNISolone 40 mg Vial IVP SCH (22:26)
[2017-08-18 06:53] LABS: BASO # 0.01 K/mm3 (0.0-2.0); BASO % 0.3 % (0.0-3.0); GRAN # 2.57 (1.4-6.5); GRAN % 75.4 % (50.0-68.0); HEMOGLOBIN 14.9 g/dL (12.0-16.0); LYMPH # 0.8 (1.2-3.4); MEAN CELL VOLUME 88.5 fl (80.0-105.0); MEAN CORPUSCULAR HEMOGLOBIN 30.5 pg (25.0-35.0); MEAN CORPUSCULAR HGB CONC 34.5 g/dl (31.0-37.0); MEAN PLATELET VOLUME 11.2 fl (7.0-11.0); MONO % 0.3 % (1.0-6.0); RBC 4.88 10^6/uL (3.5-6.1); RED CELL DISTRIBUTION WIDTH 11.6 % (11.5-14.5); WHITE BLOOD COUNT 3.4 10^3/ul (4.5-11.0)
[2017-08-18 07:17] LABS: FREE T4 4.66 ng/dL (0.78-2.19); T4 20.8 ug/dL (5.5-11.0)
[2017-08-18 07:19] LABS: ALB/GLOB RATIO 1.3 (1.1-1.8); ALBUMIN 3.8 g/dL (3.0-4.8); ALT/SGPT 30 U/L (7-56); AST/SGOT 38 U/L (14-36); BLOOD UREA NITROGEN 20 mg/dL (7-21); CALCIUM 9.7 mg/dL (8.4-10.5); GAMMA GLUTAMYL TRANSPEPTIDASE 73 U/L (8-78); GFR AFRICAN-AMERICAN > 60; GFR NON-AFRICAN AMERICAN > 60
--- NOTE | 2017-08-18 07:46 | RAD ---
HISTORY: sob COMPARISON: 07/14/2017 FINDINGS: LUNGS: No active pulmonary disease. PLEURA: No significant pleural effusion identified, no pneumothorax apparent. CARDIOVASCULAR: Normal. OSSEOUS STRUCTURES: No significant abnormalities. VISUALIZED UPPER ABDOMEN: Normal. OTHER FINDINGS: None. IMPRESSION: No active disease.
--- NOTE | 2017-08-18 07:54 | CP.CCUPN ---
Addendum entered and electronically signed by Gela Abrams DO 08/18/17 10:11 : pt already on steroid for COPD Original Note: <Gela Abrams - Last Filed: 08/18/17 10:03> CCU Subjective - Physician Review Subjective (Free Text): 08/18/17 07:50 PGY-[address] Langston Pt said breathing is better. (+) gen weakness. No DIAZ, CP, palpitation, N/V/D/C, dysuria HR 120s-140s at 9am BP 110/50 CCU Objective - Vital Signs / Intake & Output Vital Signs (Last 4 hours): Vital Signs Pulse Resp BP Pulse Ox 08/18/17 04:10 90 35 H 96 08/18/17 04:00 84 24 140/76 96 Intake and Output (Last 8hrs): Intake & Output 08/17/17 08/18/17 08/18/17 22:59 06:59 14:59 Output Total 200 Balance -200 Weight 132 lb 6.4 oz Output: Urine 200 - Physical Exam Head: Positive for: Atraumatic, Normocephalic Pupils: Positive for: PERRL Extroacular Muscles: Positive for: EOMI Conjunctiva: Positive for: Normal Mouth: Positive for: Moist Mucous Membranes Neck: Positive for: Normal Range of Motion Respiratory/Chest: Positive for: Rales (b/l bases). Negative for: Clear to Auscultation, Respiratory Distress, Accessory Muscle Use, Wheezes, Rhonchi Cardiovascular: Positive for: Irregular Rhythm. Negative for: Murmurs, Tachycardic, Bradycardic, Rub, Gallop Abdomen: Negative for: Tenderness, Distention, Rebound, Guarding Back: Positive for: Normal Inspection Upper Extremity: Positive for: Normal Inspection. Negative for: Cyanosis, Edema Lower Extremity: Positive for: Normal Inspection. Negative for: Edema Neurological: Positive for: GCS=15, CN II-XII Intact, Speech Normal Skin: Positive for: Warm, Dry, Normal Color. Negative for: Rashes Psychiatric: Positive for: Alert, Oriented x 3, Normal Insight, Normal Concentration - Medications Active Medications: Active Medications Generic Name Dose Route Start Last Admin Trade Name Freq PRN Reason Stop Dose Admin Aspirin 81 mg 08/18/17 10:00 Ecotrin PO DAILY LETY Enoxaparin Sodium 65 mg 08/18/17 10:00 Lovenox SC DAILY [facility] Protocol Levalbuterol HCl 1.25 mg 08/18/17 08:00 Xopenex IH TIDRESP LETY Levalbuterol HCl 1.25 mg 08/17/17 21:51 Xopenex IH [id number] PRN Shortness of Breath Methylprednisolone 40 mg 08/17/17 22:00 08/17/17 22:26 Solu-Medrol IVP 40 mg Q12 LETY Administration Propranolol HCl 10 mg 08/18/17 10:00 Inderal PO TID LETY Propylthiouracil 100 mg 08/18/17 10:00 Propylthiouracil PO TID [facility] - Patient Studies Lab Studies: Lab Studies 08/18/17 08/18/17 08/18/17 Range/Units 06:00 06:00 06:00 WBC 3.4 L D (4.5-11.0) 10^3/ul RBC 4.88 (3.5-6.1) 10^6/uL Hgb 14.9 (12.0-16.0) g/dL Hct 43.2 (36.0-48.0) % MCV 88.5 (80.0-105.0) fl MCH 30.5 (25.0-35.0) pg MCHC 34.5 (31.0-37.0) g/dl RDW 11.6 (11.5-14.5) % Plt Count 259 (120.0-450.0) 10^3/uL MPV 11.2 H (7.0-11.0) fl Gran % 75.4 H (50.0-68.0) % Lymph % (Auto) 24.0 (22.0-35.0) % [place] % (Auto) 0.3 L (1.0-6.0) % Eos % (Auto) 0.0 L (1.5-5.0) % Baso % (Auto) 0.3 (0.0-3.0) % Gran # 2.57 (1.4-6.5) Lymph # (Auto) 0.8 L (1.2-3.4) [place] # (Auto) 0.0 L (0.1-0.6) Eos # (Auto) 0.0 (0.0-0.7) Baso # (Auto) 0.01 (0.0-2.0) K/mm3 Sodium 143 (132-148) mmol/L Potassium 3.9 (3.6-5.0) mmol/L Chloride 101 (98-107) mmol/L Carbon Dioxide 27 (21-33) mmol/L Anion Gap 19 (10-20) BUN 20 (7-21) mg/dL Creatinine 0.7 (0.7-1.2) mg/dl Est GFR ( Amer) > 60 Est GFR (Non-Af Amer) > 60 Random Glucose 170 H (70-110) mg/dL Calcium 9.7 (8.4-10.5) mg/dL Phosphorus 5.6 H (2.5-4.5) mg/dL Magnesium 2.1 (1.7-2.2) mg/dL Total Bilirubin 0.4 (0.2-1.3) mg/dL GGT 73 (8-78) U/L AST 38 H (14-36) U/L ALT 30 (7-56) U/L Alkaline Phosphatase 103 (38-126) U/L Total Protein 6.7 (5.8-8.3) g/dL Albumin 3.8 (3.0-4.8) g/dL Globulin 2.9 gm/dL Albumin/Globulin Ratio 1.3 (1.1-1.8) Free T4 4.66 H (0.78-2.19) ng/dL Thyroxine (T4) 20.8 H (5.5-11.0) ug/dL TSH 3rd Generation < 0.02 L (0.46-4.68) mIU/mL Urine Color (YELLOW) Urine Appearance (CLEAR) Urine pH (4.7-8.0) Ur Specific [place] (1.005-1.035) Urine Protein (<30 mg/dL) mg/dL Urine Glucose (UA) (NEGATIVE) mg/dL Urine Ketones (NEGATIVE) mg/dL Urine Blood (NEGATIVE) Urine Nitrate (NEGATIVE) Urine Bilirubin (NEGATIVE) Urine Urobilinogen (<1 E.U./dL) E.U./dL Ur Leukocyte Esterase (NEGATIVE) Sh[place]/uL 08/17/17 Range/Units 21:09 WBC (4.5-11.0) 10^3/ul RBC (3.5-6.1) 10^6/uL Hgb (12.0-16.0) g/dL Hct (36.0-48.0) % MCV (80.0-105.0) fl MCH (25.0-35.0) pg MCHC (31.0-37.0) g/dl RDW (11.5-14.5) % Plt Count (120.0-450.0) 10^3/uL MPV (7.0-11.0) fl Gran % (50.0-68.0) % Lymph % (Auto) (22.0-35.0) % [place] % (Auto) (1.0-6.0) % Eos % (Auto) (1.5-5.0) % Baso % (Auto) (0.0-3.0) % Gran # (1.4-6.5) Lymph # (Auto) (1.2-3.4) [place] # (Auto) (0.1-0.6) Eos # (Auto) (0.0-0.7) Baso # (Auto) (0.0-2.0) K/mm3 Sodium (132-148) mmol/L Potassium (3.6-5.0) mmol/L Chloride (98-107) mmol/L Carbon Dioxide (21-33) mmol/L Anion Gap (10-20) BUN (7-21) mg/dL Creatinine (0.7-1.2) mg/dl Est GFR ( Amer) Est GFR (Non-Af Amer) Random Glucose (70-110) mg/dL Calcium (8.4-10.5) mg/dL Phosphorus (2.5-4.5) mg/dL Magnesium (1.7-2.2) mg/dL Total Bilirubin (0.2-1.3) mg/dL GGT (8-78) U/L AST (14-36) U/L ALT (7-56) U/L Alkaline Phosphatase (38-126) U/L Total Protein (5.8-8.3) g/dL Albumin (3.0-4.8) g/dL Globulin gm/dL Albumin/Globulin Ratio (1.1-1.8) Free T4 (0.78-2.19) ng/dL Thyroxine (T4) (5.5-11.0) ug/dL TSH 3rd Generation (0.46-4.68) mIU/mL Urine Color Colorless (YELLOW) Urine Appearance Clear (CLEAR) Urine pH 6.0 (4.7-8.0) Ur Specific [place] 1.010 (1.005-1.035) Urine Protein Negative (<30 mg/dL) mg/dL Urine Glucose (UA) Negative (NEGATIVE) mg/dL Urine Ketones Trace H (NEGATIVE) mg/dL Urine Blood Negative (NEGATIVE) Urine Nitrate Negative (NEGATIVE) Urine Bilirubin Negative (NEGATIVE) Urine Urobilinogen 0.2 (<1 E.U./dL) E.U./dL Ur Leukocyte Esterase Negative (NEGATIVE) Shantell/uL Laboratory Results - last 24 hr 08/17/17 08/18/17 08/18/17 21:09 06:00 06:00 WBC 3.4 L D RBC 4.88 Hgb 14.9 Hct 43.2 MCV 88.5 MCH 30.5 MCHC 34.5 RDW 11.6 Plt Count 259 MPV 11.2 H Gran % 75.4 H Lymph % (Auto) 24.0 [place] % (Auto) 0.3 L Eos % (Auto) 0.0 L Baso % (Auto) 0.3 Gran # 2.57 Lymph # (Auto) 0.8 L [place] # (Auto) 0.0 L Eos # (Auto) 0.0 Baso # (Auto) 0.01 Sodium 143 Potassium 3.9 Chloride 101 Carbon Dioxide 27 Anion Gap 19 BUN 20 Creatinine 0.7 Est GFR ( Amer) > 60 Est GFR (Non-Af Amer) > 60 Random Glucose 170 H Calcium 9.7 Phosphorus 5.6 H Magnesium 2.1 Total Bilirubin 0.4 GGT 73 AST 38 H ALT 30 Alkaline Phosphatase 103 Total Protein 6.7 Albumin 3.8 Globulin 2.9 Albumin/Globulin Ratio 1.3 Free T4 Thyroxine (T4) TSH 3rd Generation Urine Color Colorless Urine Appearance Clear Urine pH 6.0 Ur Specific [place] 1.010 Urine Protein Negative Urine Glucose (UA) Negative Urine Ketones Trace H Urine Blood Negative Urine Nitrate Negative Urine Bilirubin Negative Urine Urobilinogen 0.2 Ur Leukocyte Esterase Negative 08/18/17 06:00 WBC RBC Hgb Hct MCV MCH MCHC RDW Plt Count MPV Gran % Lymph % (Auto) [place] % (Auto) Eos % (Auto) Baso % (Auto) Gran # Lymph # (Auto) [place] # (Auto) Eos # (Auto) Baso # (Auto) Sodium Potassium Chloride Carbon Dioxide Anion Gap BUN Creatinine Est GFR ( Amer) Est GFR (Non-Af Amer) Random Glucose Calcium Phosphorus Magnesium Total Bilirubin GGT AST ALT Alkaline Phosphatase Total Protein Albumin Globulin Albumin/Globulin Ratio Free T4 4.66 H Thyroxine (T4) 20.8 H TSH 3rd Generation < 0.02 L Urine Color Urine Appearance Urine pH Ur Specific [place] Urine Protein Urine Glucose (UA) Urine Ketones Urine Blood Urine Nitrate Urine Bilirubin Urine Urobilinogen Ur Leukocyte Esterase Critical Care Progress Note - Nutrition Nutrition: Nutrition Category Date Time Status Heart Healthy Diet [DIET] Diets 08/17/17 Dinner Active Assessment/Plan - Assessment and Plan (Free Text) Plan: Ms Lyons, 87 F, COPD, hyperthyroidism due to Graves disease off methimazole 1 year ago due to elevated LFT, A Fib not on AC, and narrow angle glaucoma, who presents with COPD exacerbation, hyperthyroidism and AFib with RVR. She has penicillin allergy. Will contact Dr. Walsh re: possibility of thyroidtoxicosis, which may need steroid Neuro A&Ox3 Maintain euthermic Cardio [id number]: 3 (3.2% stroke risk), Lovenox 65 mg SC BID; ASA 81 Still in A-fib 120s-130s. Cardizem 10mg x 1. Add cardizem 30POQ6. Propranolol 10 mg TID; CXR: no cardiomegaly or consolidation; (+) venous encephalization (improves as compared to 07/14) pending official read. Got lasix 20 IV x1 Respiratory O2 via nasal cannula PRN Xopenex TID LETY and Q6 PRN Solu-medrol 40 mg Q12H (day 1), goal is to taper Renal BUN/Cr: 18/0.7 Stable Fluids, Electrolytes, Nutrition Electrolytes WNL - will monitor with morning labs Nutrition: Heart healthy decaf diet Infectious disease Tcurrent: 97.6 WBC 8.1 --> 3.4 (observe off antibiotics, likely reactive to thyroid status) Hematmology H&H: 14.6/42.7 Plts: 272 PT/PTT/INR: 14.5/25/1.27 GI AST/ALT: 39/30 TBili: 0.[address] Walsh re: possibility of thyroidtoxicosis, which may need steroid TSH & Free T4: 0.02/4.54 Pending thyroglobulin panel, thyroid peroxidase AB, Thyroid-stimulating Immunoglobulin (TSI) Called Dr. Todd upon admission with no answer ([phone]) Prophylaxis DVT: Lovenox GI: Protonix Consult: Card: Dr Wu Endo: Dr Walsh Pulm: Vini s/r/d/w Dr. Langston <Francesco Langston - Last Filed: 08/18/17 14:25> CCU Objective - Vital Signs / Intake & Output Vital Signs (Last 4 hours): Vital Signs Pulse BP 08/18/17 11:11 108 H 101/45 L Intake and Output (Last 8hrs): Intake & Output 08/17/17 08/18/17 08/18/17 22:59 06:59 14:59 Output Total 200 Balance -200 Weight 132 lb 6.4 oz Output: Urine 200 - Medications Active Medications: Active Medications Generic Name Dose Route Start Last Admin Trade Name Freq PRN Reason Stop Dose Admin Aspirin 81 mg 08/18/17 10:00 08/18/17 09:10 Ecotrin PO 81 mg DAILY LETY Administration Diltiazem HCl 30 mg 08/18/17 09:15 08/18/17 09:24 Cardizem PO 30 mg Q6H LETY Administration Enoxaparin Sodium 65 mg 08/18/17 10:00 08/18/17 09:11 Lovenox SC 65 mg BID LETY Administration Protocol Levalbuterol HCl 1.25 mg 08/18/17 08:00 08/18/17 14:03 Xopenex IH Not Given TIDRESP LETY Levalbuterol HCl 1.25 mg 08/17/17 21:51 Xopenex IH [id number] PRN Shortness of Breath Methylprednisolone 40 mg 08/17/17 22:00 08/18/17 09:10 Solu-Medrol IVP 40 mg Q12 LETY Administration Metoprolol Tartrate 25 mg 08/18/17 10:00 08/18/17 11:11 Lopressor PO 25 mg BID LETY Administration Propylthiouracil 100 mg 08/18/17 10:00 08/18/17 09:27 Propylthiouracil PO 100 mg TID LETY Administration - Patient Studies Lab Studies: Lab Studies 08/18/17 08/18/17 08/18/17 Range/Units 06:00 06:00 06:00 WBC (4.5-11.0) 10^3/ul RBC (3.5-6.1) 10^6/uL Hgb (12.0-16.0) g/dL Hct (36.0-48.0) % MCV (80.0-105.0) fl MCH (25.0-35.0) pg MCHC (31.0-37.0) g/dl RDW (11.5-14.5) % Plt Count (120.0-450.0) 10^3/uL MPV (7.0-11.0) fl Gran % (50.0-68.0) % Lymph % (Auto) (22.0-35.0) % [place] % (Auto) (1.0-6.0) % Eos % (Auto) (1.5-5.0) % Baso % (Auto) (0.0-3.0) % Gran # (1.4-6.5) Lymph # (Auto) (1.2-3.4) [place] # (Auto) (0.1-0.6) Eos # (Auto) (0.0-0.7) Baso # (Auto) (0.0-2.0) K/mm3 Sodium 143 (132-148) mmol/L Potassium 3.9 (3.6-5.0) mmol/L Chloride 101 (98-107) mmol/L Carbon Dioxide 27 (21-33) mmol/L Anion Gap 19 (10-20) BUN 20 (7-21) mg/dL Creatinine 0.7 (0.7-1.2) mg/dl Est GFR ( Amer) > 60 Est GFR (Non-Af Amer) > 60 Random Glucose 170 H (70-110) mg/dL Calcium 9.7 (8.4-10.5) mg/dL Phosphorus 5.6 H (2.5-4.5) mg/dL Magnesium 2.1 (1.7-2.2) mg/dL Total Bilirubin 0.4 (0.2-1.3) mg/dL GGT 73 (8-78) U/L AST 38 H (14-36) U/L ALT 30 (7-56) U/L Alkaline Phosphatase 103 (38-126) U/L Troponin I < 0.01 ng/mL Total Protein 6.7 (5.8-8.3) g/dL Albumin 3.8 (3.0-4.8) g/dL Globulin 2.9 gm/dL Albumin/Globulin Ratio 1.3 (1.1-1.8) Free T4 4.66 H (0.78-2.19) ng/dL Thyroxine (T4) 20.8 H (5.5-11.0) ug/dL TSH 3rd Generation < 0.02 L (0.46-4.68) mIU/mL Urine Color (YELLOW) Urine Appearance (CLEAR) Urine pH (4.7-8.0) Ur Specific [place] (1.005-1.035) Urine Protein (<30 mg/dL) mg/dL Urine Glucose (UA) (NEGATIVE) mg/dL Urine Ketones (NEGATIVE) mg/dL Urine Blood (NEGATIVE) Urine Nitrate (NEGATIVE) Urine Bilirubin (NEGATIVE) Urine Urobilinogen (<1 E.U./dL) E.U./dL Ur Leukocyte Esterase (NEGATIVE) [place]antell/uL 18 08/17/17 Range/Units 06:00 21:09 WBC 3.4 L D (4.5-11.0) 10^3/ul RBC 4.88 (3.5-6.1) 10^6/uL Hgb 14.9 (12.0-16.0) g/dL Hct 43.2 (36.0-48.0) % MCV 88.5 (80.0-105.0) fl MCH 30.5 (25.0-35.0) pg MCHC 34.5 (31.0-37.0) g/dl RDW 11.6 (11.5-14.5) % Plt Count 259 (120.0-450.0) 10^3/uL MPV 11.2 H (7.0-11.0) fl Gran % 75.4 H (50.0-68.0) % Lymph % (Auto) 24.0 (22.0-35.0) % [place] % (Auto) 0.3 L (1.0-6.0) % Eos % (Auto) 0.0 L (1.5-5.0) % Baso % (Auto) 0.3 (0.0-3.0) % Gran # 2.57 (1.4-6.5) Lymph # (Auto) 0.8 L (1.2-3.4) [place] # (Auto) 0.0 L (0.1-0.6) Eos # (Auto) 0.0 (0.0-0.7) Baso # (Auto) 0.01 (0.0-2.0) K/mm3 Sodium (132-148) mmol/L Potassium (3.6-5.0) mmol/L Chloride (98-107) mmol/L Carbon Dioxide (21-33) mmol/L Anion Gap (10-20) BUN (7-21) mg/dL Creatinine (0.7-1.2) mg/dl Est GFR ( Amer) Est GFR (Non-Af Amer) Random Glucose (70-110) mg/dL Calcium (8.4-10.5) mg/dL Phosphorus (2.5-4.5) mg/dL Magnesium (1.7-2.2) mg/dL Total Bilirubin (0.2-1.3) mg/dL GGT (8-78) U/L AST (14-36) U/L ALT (7-56) U/L Alkaline Phosphatase (38-126) U/L Troponin I ng/mL Total Protein (5.8-8.3) g/dL Albumin (3.0-4.8) g/dL Globulin gm/dL Albumin/Globulin Ratio (1.1-1.8) Free T4 (0.78-2.19) ng/dL Thyroxine (T4) (5.5-11.0) ug/dL TSH 3rd Generation (0.46-4.68) mIU/mL Urine Color Colorless (YELLOW) Urine Appearance Clear (CLEAR) Urine pH 6.0 (4.7-8.0) Ur Specific [place] 1.010 (1.005-1.035) Urine Protein Negative (<30 mg/dL) mg/dL Urine Glucose (UA) Negative (NEGATIVE) mg/dL Urine Ketones Trace H (NEGATIVE) mg/dL Urine Blood Negative (NEGATIVE) Urine Nitrate Negative (NEGATIVE) Urine Bilirubin Negative (NEGATIVE) Urine Urobilinogen 0.2 (<1 E.U./dL) E.U./dL Ur Leukocyte Esterase Negative (NEGATIVE) [place]antell/uL Laboratory Results - last 24 hr 08/17/17 08/18/17 08/18/17 21:09 06:00 06:00 WBC 3.4 L D RBC 4.88 Hgb 14.9 Hct 43.2 MCV 88.5 MCH 30.5 MCHC 34.5 RDW 11.6 Plt Count 259 MPV 11.2 H Gran % 75.4 H Lymph % (Auto) 24.0 [place] % (Auto) 0.3 L Eos % (Auto) 0.0 L Baso % (Auto) 0.3 Gran # 2.57 Lymph # (Auto) 0.8 L [place] # (Auto) 0.0 L Eos # (Auto) 0.0 Baso # (Auto) 0.01 Sodium 143 Potassium 3.9 Chloride 101 Carbon Dioxide 27 Anion Gap 19 BUN 20 Creatinine 0.7 Est GFR ( Amer) > 60 Est GFR (Non-Af Amer) > 60 Random Glucose 170 H Calcium 9.7 Phosphorus 5.6 H Magnesium 2.1 Total Bilirubin 0.4 GGT 73 AST 38 H ALT 30 Alkaline Phosphatase 103 Troponin I Total Protein 6.7 Albumin 3.8 Globulin 2.9 Albumin/Globulin Ratio 1.3 Free T4 Thyroxine (T4) TSH 3rd Generation Urine Color Colorless Urine Appearance Clear Urine pH 6.0 Ur Specific [place] 1.010 Urine Protein Negative Urine Glucose (UA) Negative Urine Ketones Trace H Urine Blood Negative Urine Nitrate Negative Urine Bilirubin Negative Urine Urobilinogen 0.2 Ur Leukocyte Esterase Negative 08/18/17 08/18/17 06:00 06:00 WBC RBC Hgb Hct MCV MCH MCHC RDW Plt Count MPV Gran % Lymph % (Auto) [place] % (Auto) Eos % (Auto) Baso % (Auto) Gran # Lymph # (Auto) [place] # (Auto) Eos # (Auto) Baso # (Auto) Sodium Potassium Chloride Carbon Dioxide Anion Gap BUN Creatinine Est GFR ( Amer) Est GFR (Non-Af Amer) Random Glucose Calcium Phosphorus Magnesium Total Bilirubin GGT AST ALT Alkaline Phosphatase Troponin I < 0.01 Total Protein Albumin Globulin Albumin/Globulin Ratio Free T4 4.66 H Thyroxine (T4) 20.8 H TSH 3rd Generation < 0.02 L Urine Color Urine Appearance Urine pH Ur Specific [place] Urine Protein Urine Glucose (UA) Urine Ketones Urine Blood Urine Nitrate Urine Bilirubin Urine Urobilinogen Ur Leukocyte Esterase EKG/Cardiology Studies: Cardiology / EKG Studies 08/18/17 09:33 ELECTROCARDIOGRAM Routine Comment: Reason For Exam: SOB, AF Critical Care Progress Note - Nutrition Nutrition: Nutrition Category Date Time Status Heart Healthy Diet [DIET] Diets 08/17/17 Dinner Active Assessment/Plan - Assessment and Plan (Free Text) Plan: Patient seen and examined on rounds with resident, agree with note with following additions/exceptions: Patient is 87yo female with PMHx of hyperthyroidism, Afib not on A/C, COPD, presented with Afib with RVR, given cardizem 10mg IV x 2, and started on cardizem PO. Currently afebrile, HD stable, comfortable in NAD, HR 90-100s, with no major complaints. Thryoid panel tests noted, endocrinology consulted. Afib with RVR Hyperthyroidism COPD Recommend: - supp o2 as needed - Xopenex PRN - switch to Prednisone 40mg daily x 5 days - follow up cultures, CXR negative - BP control - Rate control, Cardizem PO - Lovenox 1mg/kg BID - follow up cardiology - PTU - endo consult - GI ppx - DVT ppx - STABLE, transfer to telemetry
[2017-08-18] MEDS: Levalbuterol 1.25 MG/3 ML Inhal Soln UD IH SCH ×3 (07:59→19:44)
[2017-08-18] MEDS: MethylPREDNISolone 40 mg Vial IVP SCH ×2 (09:10→21:55)
[2017-08-18] MEDS: Enoxaparin 80 mg Syringe SC SCH ×2 (09:11→17:27)
--- NOTE | 2017-08-18 09:53 | CON ---
DATE: ENDOCRINOLOGY CONSULTATION LOCATION: ICU 128, Room #4 HISTORY OF PRESENT ILLNESS: This is an 87-year-old female with known history of longstanding hyperthyroidism and admitted here with progressively worsening shortness of breath and generalized body weakness and was evaluated to have an acute exacerbation of COPD and started on IV steroid therapy and also marked supervening hyperthyroidism and is being referred now for Endocrine evaluation and management. PAST MEDICAL HISTORY: History of hyperthyroidism and was previously using Tapazole medication with subsequent elevation of her liver function studies and it was discontinued by her legal support analyst in [facility], Dr. Doretha Todd and was actually scheduled to go for possible radioactive iodine ablation which was held because of the patient's upper mentioned symptoms. History of paroxysmal atrial fibrillation and at one point was on metoprolol and Eliquis, but was stopped about a year ago after hyperthyroid condition was under control on medical therapy. She has actually been off Tapazole for at least a year or more prior to this admission, history of chronic obstructive lung disease with previous admissions for exacerbations of the same history of Graves disease and hyperthyroidism and as mentioned above, history of a prior parathyroidectomy and the exact nature of biopsy reports are not known by the patient at the time. FAMILY HISTORY: Positive for hypertension and diabetes. SOCIAL HISTORY: The patient has supportive family. Admits to history of longstanding nicotine dependence and smokes two packs of cigarettes for over 40 years, but has quit about 10 years ago. Also admits to social use of alcohol. REVIEW OF SYSTEMS: As mentioned above. Admits to progressively worsening dizziness and lightheadedness with generalized body weakness and easy fatigability and tiredness. Also, admits to bifrontal headaches as noted. Also admits to sudden onset of precordial chest pain with worsening palpitations especially on exertion and supervening progressive shortness of breath over the last 5 days or so prior to admission with associated productive cough and nasal and throat congestion. Her oral intake has been variable with nausea, dyspepsia and vague upper abdominal pains. Also, admits to hyperdefecation as noted and also admits to lower extremity paresthesias and polymyalgias. PHYSICAL EXAMINATION: GENERAL: Average built female in no apparent distress. VITAL SIGNS: Blood pressure of 150/90, pulse of 110 beats per minute, irregular, temperature 99, respirations 20, height is 5 feet 3 inches, weight is 132. HEENT: Head is normocephalic. Eyes anicteric with pink conjunctivae. Funduscopy not possible at this time. Ears, nose and throat otherwise normal. NECK: Supple. Thyroid gland shows diffuse thyromegaly, which is firm and nontender with positive thyroid bruits as noted. HEART: Chest wall shows hyperdynamic precordium. S1, S2 is rapid and regular. LUNGS: Clear to auscultation. ABDOMEN: Flat, soft with positive bowel sounds. EXTREMITIES: No peripheral edema. Pulses are +2 bilaterally. LABORATORY DATA: Her chemistry showed a BUN of 18, sodium 142, potassium 4.8, chloride 101, CO2 28, glucose 114 and creatinine 0.7. Her ProBNP is 43,00 and has slightly elevated liver function studies as noted. Her thyroid study showed a free T4 of 4.54 with a TSH of less than 0.02. ASSESSMENT: This is an 87-year-old female with overt thyrotoxicosis presenting here with marked hyperthyroidism both historically, clinically and biochemically related to underlying Graves disease with a concomitant diffuse toxic goiter and presenting here with resurgence and recurrence of rapid atrial fibrillation most likely related to drug omission as her medical therapy was discontinued over a year ago because of elevated liver transaminases as noted. She also has acute exacerbation of chronic obstructive pulmonary disease related to prior chronic nicotine use over 40 years and currently started on IV steroid therapy as noted. PLAN OF MANAGEMENT: As discussed with the patient and staff, we will initiate medical therapy with propylthiouracil or PTU at 100 mg p.o. t.i.d. after meals to start tomorrow morning as ordered. We will obtain a comprehensive thyroid hormonal profile with a total and free T4 and TSH and also a thyroid stimulating immunoglobulin which will confirm the presence of Graves disease and also a thyroid peroxidase antibody and a thyroglobulin panel accordingly. We will obtain serial chemistries and supplement accordingly as needed. We will refer the patient right back to her legal support analyst post discharge for more definitive management of her hyperthyroid condition with radioactive iodine ablation accordingly. So, the administration of PTU is only a temporizing measure pending the definitive management with radioactive iodine ablation as mentioned. We will obtain serial thyroid studies and adjust her dose regimen accordingly. We will also follow her glycemic fluctuations with the initiation of IV steroid therapy as noted. We will follow with you. Katrin Walsh MD [facility] # [id number]
[2017-08-18] MEDS ORDERED: Enoxaparin 80 mg Syringe SC SCH (10:00)
--- NOTE | 2017-08-18 10:47 | CARD ---
APPROVED REPORT EKG Measurement Heart [id number] <Conclusion> Atrial fibrillation with rapid ventricular response PRWP, possible ASMI, new c/w ECG 07/14/17 NSSTW changes
--- NOTE | 2017-08-18 11:10 | CARD ---
APPROVED REPORT EKG Measurement Heart [id number] <Conclusion> Atrial fibrillation with rapid ventricular response PRWP NSSTW changes
--- NOTE | 2017-08-18 16:42 | PN ---
DATE: 08/18/2017 ENDOCRINOLOGY FOLLOWUP NOTE LOCATION: ICU 128, room 4. HISTORY OF PRESENT ILLNESS: This is an 87-year-old female admitted with progressive shortness of breath and generalized body weakness and evaluated to have an acute exacerbation of COPD and is now also being followed closely for metabolic management. She also admitted to marked constitutional symptoms of generalized fatigue and weakness with precordial chest pain and palpitations with marked insomnia related to resurgence of her hyperthyroid condition as noted. She was taken off Tapazole medications for over a year now because of elevated liver transaminases and has been followed closely by her operator vacuum in [facility], Dr. Todd. She was actually scheduled for radioactive iodine ablation, but was held off because of the above-mentioned clinical exacerbation of COPD. Her latest chemistry showed a BUN of 20, sodium 143, potassium 3.9, chloride 101, CO2 27, glucose 170 and creatinine 0.7. Her thyroid studies done on a more comprehensive way today showed a total T4 or thyroxine level at 20.8 with a free T4 of 4.66 and a TSH of less than 0.02. Her troponin is less than 0.01. ASSESSMENT: This is an 87-year-old female with overt thyrotoxicosis, presenting here with marked hyperthyroidism, both historically, clinically, and biochemically related to underlying autoimmune thyroiditis, i.e. Graves disease. She also has concomitant diffuse toxic goiter and recently developed elevated liver transaminases and was taken off medical therapy as noted. PLAN OF MANAGEMENT: The patient actually is scheduled for radioactive iodine ablation on the outpatient to be scheduled by her operator vacuum in [facility] as soon as she is clinically and hemodynamically stable, post discharge from this hospital. In the interim, we will have to treat her extremely elevated thyroxine levels because this may just provoke thyroid crisis or near thyroid storm if she receives radioactive iodine ablation and is concomitantly extremely hyperthyroid. We will continue the propylthiouracil or PTU given as 100 mg p.o. t.i.d. and we will titrate incrementally as per the rate to optimize metabolic control. We also sent out thyroid antibodies such as thyroid stimulating immunoglobulin and thyroid peroxidase antibody and thyroglobulin antibody which will confirm and/or indicate the presence of underlying acute thyroid autoimmunity. We will obtain serial chemistries and supplement accordingly as needed. We will follow. Katrin Walsh MD
--- NOTE | 2017-08-18 18:40 | CARD ---
APPROVED REPORT EXAM: Two-dimensional and M-mode echocardiogram with Doppler and color Doppler. INDICATION 2D DIMENSIONS IVSd0.5 (0.7-1.1cm)LVDd4.5 (3.9-5.9cm) PWd0.5 (0.7-1.1cm)LVDs4.0 (2.5-4.0cm) FS (%) 11.5 %LVEF (%)25.1 (>50%) M-Mode DIMENSIONS Left Atrium (MM)2.90 (2.5-4.0cm)Aortic Root2.90 (2.2-3.7cm) Aortic Cusp Exc.1.90 (1.5-2.0cm) Aortic Valve AoV Peak Dlsufbsm10.8cm/Mima Peak GR.4mmHg Mitral Valve MV E Qhnfoyzf662.0cm/s TDI Lateral E' Peak V11.30cm/sMedial E' Peak V9.85cm/sE/Lateral E'9.2 E/Medial E'10.6 Tricuspid Valve TR Peak [id number]/sRAP [id number] Peak Gr.22mmHg [id number] LEFT VENTRICLE The left ventricle is normal size. There is normal left ventricular wall thickness. The systolic function is moderately impaired. There is moderate to severe hypokinesis of the anteroseptal and apical segments. RIGHT VENTRICLE The right ventricle is normal size. The right ventricular systolic function is normal. ATRIA The left atrium size is normal. The right atrium size is normal. The interatrial septum is intact with no evidence for an atrial septal defect. AORTIC VALVE The aortic valve is mildly sclerotic. There is no aortic valvular stenosis. MITRAL VALVE The mitral valve is normal in structure. Mitral regurgitation is mild. TRICUSPID VALVE The tricuspid valve is normal in structure. There is mild tricuspid regurgitation. PULMONIC VALVE The pulmonary valve is normal in structure. GREAT VESSELS The aortic root is normal in size. The IVC is normal in size and collapses >50% with inspiration. PERICARDIAL EFFUSION There is no pleural effusion. There is no pericardial effusion. <Conclusion> Technically difficult study. Chamber sizes appear within normal limits. Moderately reduced LV systolic function with anteroseptal and apical hypokinesis. Overall EF - 35%. Mild mitral regurgitation. Mild tricuspid regurgitation.
--- NOTE | 2017-08-18 18:55 | HP ---
HISTORY OF PRESENT ILLNESS: This is an 87-year-old female who is referred to [facility] with complaints of feeling fatigued and tired. The patient has a history of paroxysmal atrial fibrillation, hyperthyroidism, history of COPD, history of pneumonia. The patient is being followed physicians in [facility]. Her databases software consultant discontinued her beta-lynn several months ago as she was in a sinus rhythm, and recently her carpenters helper felt that she did not need her methimazole. However, repeat labs showed that there was a lowering of her TSH level which was discussed with her doctor in [place], and subsequently there was a plan for ablation of the thyroid as per the patient. She presented to [facility] now with complaints of fatigue. SOCIAL HISTORY: She is a nonsmoker, nondrinker, non-drug user. ALLERGIES: TO PENICILLIN. HOME MEDICATIONS: Consisted of Ecotrin 81 mg daily and Spiriva one puff daily. REVIEW OF SYSTEMS: Multiple systems are reviewed, pertinent findings is that the patient has a rapid heart rate. PHYSICAL EXAMINATION VITAL SIGNS: She was found to have a pulse of 123, respiratory rate of 24, oxygen saturation was reported at 94% on room air, blood pressure was 129/82. GENERAL: She was alert and oriented x3. NECK: Supple. No JVD. LUNGS: Showed diminished breath sounds at the bases. HEART: With an irregular S1 and S2 rhythm. ABDOMEN: Soft, with positive bowel sounds. EXTREMITIES: No evidence of edema. LABORATORY DATA: Showed a WBC of 8.1, RBC of 4.79, hemoglobin 14.6, hematocrit 42.7, platelet count was 272. Her PT was 14.5, with an INR of 1.27, PTT was 25. Chemistry shows normal electrolytes, the BUN was 18, the creatinine was 0.7, random blood sugar was 114, her AST was 39. Her troponin was less than 0.01. Her BNP was 4300. TSH level was less than 0.02. Urinalysis was negative. IMPRESSION: A request was made for the patient to be seen by the manager china and she was admitted into the intensive care unit after being started on Cardizem drip and given Lovenox. She also received bronchodilator therapy and some methylprednisolone. Consults were requested with Cardiology as well as Endocrinology. Follow up to repeat labs. Await input from the individual consultants. Brook Hahn MD [facility] # [id number]
--- NOTE | 2017-08-18 20:22 | CON ---
DATE: 08/18/2017 INDICATIONS: Atrial fibrillation with rapid ventricular response. HISTORY OF PRESENT ILLNESS: This is an 87-year-old woman, known to our practice, admitted with several days of shortness of breath, cough, sputum production, pedal edema, fatigue, not feeling well, URI, treated with antibiotics over the weekend, but continued symptoms and weakness on Thursday prompted her to go to the emergency room. She was admitted to the Intensive Care Unit by Dr. Hahn. She is in atrial fibrillation, resting comfortably in bed this morning. The heart rate is moderate to rapid. There is no chest pain, orthopnea, PND, syncope, presyncope, lightheadedness, vertigo. There is a low-grade fever. There is sputum production. There is no hemoptysis. There is no abdominal pain, nausea, vomiting, diarrhea, constipation or melena. PAST MEDICAL HISTORY: Notable for hyperthyroidism which has been treated in the past. She had paroxysmal atrial fibrillation and was on metoprolol and Eliquis in the past. This was discontinued when her thyroid came under control. Recently, she was found to be hyperthyroid and plans were made for additional therapy through her wrist closer. She has a history of parathyroidectomy, arthritis, glaucoma, COPD. She is a former smoker. There is no history of rheumatic fever, myocardial infarction, angina, congestive heart failure, stroke, TIA, diabetes or gout. MEDICATIONS AT THE TIME OF ADMISSION: Include aspirin, Spiriva, eye vitamins, calcium supplementation. ALLERGIES: SHE NOTES AN ALLERGY TO PENICILLIN. SOCIAL HISTORY: She lives at home. She is a remote heavy smoker. She does not drink alcohol significantly. She is ambulatory, but recently utilized a walker because of weakness. FAMILY HISTORY: Not notable for early coronary artery disease. REVIEW OF SYSTEMS: A 10-point review of systems is otherwise unremarkable except as noted above. PHYSICAL EXAMINATION GENERAL: She is a well-developed elderly woman, lying in bed in the Intensive Care Unit, in no acute distress. VITAL SIGNS: Notable for atrial fibrillation at around 100 beats per minute, sometimes she goes rapidly for a few minutes. She is afebrile. Blood pressure 140/76, respirations 17-24, O2 sat 91%-93% on nasal cannula and room air. HEENT: Reveals no neck vein distention, thyromegaly, carotid bruits. Mucous membranes are moist. Conjunctivae are pink. NECK: Supple. LUNGS: Lung mcdonald clear. HEART: Revealed an irregular rhythm. Normal first and second heart sounds. Soft systolic murmur along the left sternal border. ABDOMEN: Soft. Bowel sounds are present. No mass, organomegaly, tenderness, rebound, or guarding. No CVA tenderness, no palpable abdominal aortic aneurysm. EXTREMITIES: Revealed mild pedal edema. NEUROLOGIC: Awake, alert, and oriented. PSYCHIATRIC: Normal as to mood and affect. SKIN: Warm and dry. No rash or cellulitis. LABORATORY AND IMAGING: A portable chest x-ray revealed no active disease. EKG yesterday revealed atrial fibrillation with rapid ventricular response, poor R-wave progression, nonspecific ST-wave changes, possible anteroseptal myocardial infarction. CBC is unremarkable. PT/INR, PTT are mildly abnormal. Electrolytes, BUN and creatine unremarkable. Blood sugar 114, repeat 170. Phosphorous 5.6, magnesium 2.1. LFTs mildly abnormal. Troponin less than 0.01. BNP 4300. Thyroid functions are abnormal with elevated free T4 and elevated T4 noted. Urinalysis is unremarkable. IMPRESSION AND PLAN: Marlee Lyons is an 87-year-old woman with hyperthyroidism, not treated, who has developed recurrent atrial fibrillation and symptoms including shortness of breath, cough, sputum production, edema, weakness and fatigue. She was admitted to the Intensive Care Unit. Although, she is quite stable. She was started on medications by the chief controller center. These include diltiazem, aspirin, and Inderal. She is also given Lovenox. She was started on propylthiouracil by Dr. Walsh. She is getting steroids and Xopenex. I will review her office records. I believe that she has taken metoprolol in the past. I will switch Inderal to metoprolol. I believe she has taken Eliquis in the past. She can be transitioned from Lovenox to Eliquis as a discharge medication. Metoprolol will be titrated. Possibly, we will be able to discontinue diltiazem. She will be seen by Dr. Walsh. Her hyperthyroidism will be controlled. I will check an echocardiogram. She will be considered for nuclear stress testing once the hyperthyroidism is controlled. I will check a troponin level this morning. She can be out of bed to a chair. A telemetry bed would be good. She will have a Pulmonary consultation. If there is sputum production, a culture should be sent. I will follow along with you. We will make additional recommendations based on her clinical course. Roshan Agosto MD MTD[facility]
[2017-08-19 06:23] LABS: BASO # 0.01 K/mm3 (0.0-2.0); BASO % 0.1 % (0.0-3.0); GRAN # 11.69 (1.4-6.5); GRAN % 89.9 % (50.0-68.0); HEMOGLOBIN 14.2 g/dL (12.0-16.0); LYMPH % 7.8 % (22.0-35.0); MEAN CELL VOLUME 88.2 fl (80.0-105.0); MEAN CORPUSCULAR HEMOGLOBIN 30.5 pg (25.0-35.0); MEAN CORPUSCULAR HGB CONC 34.5 g/dl (31.0-37.0); MEAN PLATELET VOLUME 10.6 fl (7.0-11.0); MONO # 0.3 (0.1-0.6); MONO % 2.2 % (1.0-6.0); RBC 4.66 10^6/uL (3.5-6.1); RED CELL DISTRIBUTION WIDTH 11.6 % (11.5-14.5)
[2017-08-19 07:20] LABS: ALB/GLOB RATIO 1.1 (1.1-1.8); ALBUMIN 3.4 g/dL (3.0-4.8); ALT/SGPT 31 U/L (7-56); AST/SGOT 41 U/L (14-36); BLOOD UREA NITROGEN 34 mg/dL (7-21); CALCIUM 9.7 mg/dL (8.4-10.5); GFR AFRICAN-AMERICAN > 60; GFR NON-AFRICAN AMERICAN > 60
[2017-08-19] MEDS: Levalbuterol 1.25 MG/3 ML Inhal Soln UD IH SCH ×3 (08:04→19:50)
[2017-08-19] MEDS: Budesonide 0.5 mg/2 ml Inhal Susp UD IH SCH ×2 (08:04→19:50)
--- NOTE | 2017-08-19 08:36 | CON ---
DATE: 08/18/2017 PULMONARY CONSULTATION We were asked by Dr. Brook Hahn, needle grader to evaluate and treat this 87-year-old woman, who was admitted to Intensive Care Unit with chief complaint of shortness of breath. HISTORY OF PRESENT ILLNESS: An 87-year-old female with past medical history of chronic obstructive pulmonary disease, atrial fibrillation and hyperthyroidism, came to emergency room with the history of five days duration of productive cough and fatigue. Patient also state that she had a fever up to 101. She was given Levaquin as an outpatient but she was not able to see her PMD due to extreme fatigue and decided to come to the emergency room. REVIEW OF SYSTEMS: Was conducted by reviewing all sources. CARDIOVASCULAR: She has a history of atrial fibrillation. RESPIRATORY: History of chronic obstructive pulmonary disease. NEUROLOGIC: No history of neurologic diseases. RENAL: No history of renal disorders. ENDOCRINE: History of hyperthyroidism. The rest of the systems were reviewed and found to be negative. FAMILY HISTORY: No history of inherited diseases. HABITS: She is a former smoker, nondrinker, does not use illicit drugs. ALLERGIES: SHE IS ALLERGIC TO PENICILLIN. HOME MEDICATIONS: Included Spiriva, aspirin. PHYSICAL EXAMINATION: VITAL SIGNS: Temperature 97.8, pulse 104, respirations 18, blood pressure 116/68 and pulse oximetry is 94% on nasal cannula. HEAD: Normocephalic and atraumatic. NECK: Supple with no jugular vein distensions. CHEST: Few expiratory wheezes and few rhonchi at the bases. CARDIOVASCULAR: Irregular rhythm, tachycardia. GASTROINTESTINAL: Soft, nontender. No organomegaly. EXTREMITIES: No pedal edema. No cyanosis. NEUROLOGIC: Limited at present time. SKIN: Clear with no skin rashes, no cyanosis. LABORATORY DATA: Chest x-ray was reviewed by me and shows no active disease. Her BNP is slightly elevated at 4300. She was given Lasix in the emergency room. Her WBCs are 8.1, hemoglobin 14.6. Chemistries are all within normal limits. ASSESSMENT: 1. Shortness of breath. 2. Exacerbation of chronic obstructive pulmonary disease. 3. Atrial fibrillation. 4. Congestive heart failure. PLAN: Patient has signs of mild congestive heart failure that probably can treat with diuretics, exacerbation of chronic obstructive pulmonary disease that will be treated with inhalation therapy as well as steroid, can treat as well, hyperthyroidism on Propylthiouracil PTU. We will have to monitor white count, her WBCs are 3.4. Otherwise her condition is stable enough to be transferred to telemetry. Willi Ch MD MTDAr[facility]
--- NOTE | 2017-08-19 08:37 | PN ---
DATE: 08/19/2017 PULMONARY NOTE SUBJECTIVE: The patient appears comfortable this morning. She is not short of breath at rest. OBJECTIVE: VITAL SIGNS: Temperature is 97.4, pulse 83, respirations 18/20, blood pressure 107/66. Oxygen saturation on room air is 93-95%. HEENT: Normocephalic, atraumatic. No JVD. CARDIOVASCULAR: Systolic ejection murmur at the lower left sternal border. No S3 gallop. LUNGS: Decreased breath sounds at the bases. Mild bilateral rhonchi. No wheezing. EXTREMITIES: Mild edema. No cyanosis, no clubbing. Calves are nontender to palpation. GASTROINTESTINAL: Abdomen is soft, nontender, nondistended. Bowel sounds are positive. SKIN: No acute rash. NEUROLOGIC: Exam limited at the present time. IMPRESSION: 1. Acute bronchitis. 2. Chronic obstructive pulmonary disease. 3. Atrial fibrillation. 4. Diabetes mellitus. PLAN: The patient appears comfortable this morning. She is not short of breath at rest. She does state to feeling better overall. On physical exam, there is no significant bronchospasm noted. In addition, there is no significant alveolar-arterial gradient. I will continue with the current nebulizer treatments and decrease the intravenous steroids this morning. I will also try adding inhaled Pulmicort this morning. Inputs by Cardiology and Endocrine are noted. The patient remains on therapeutic Lovenox. Clinical status of the patient is certainly improved - compared to the initial presentation. I will discuss the above with Dr. Hahn. Wellington Greene MD MTDD
[2017-08-19] MEDS: Enoxaparin 80 mg Syringe SC SCH ×2 (09:43→18:30)
[2017-08-19] MEDS: MethylPREDNISolone 40 mg Vial IVP SCH ×2 (09:52→22:31)
[2017-08-19] MEDS ORDERED: Digoxin 500 mcg/2ml (0.5 mg/2ml) Inj IV ONE (10:34)
--- NOTE | 2017-08-19 16:21 | PN ---
DATE: 08/19/2017 SUBJECTIVE: Patient is seen sitting in bed on telemetry. She continues to have intermittent dyspnea and atrial fibrillation with rapid rate. Her blood pressure has been low normal and she is able to tolerate diltiazem in addition to metoprolol. She also complains of baseline tremors. CURRENT MEDICATIONS: Include diltiazem 30 mg every 6 hours, Ecotrin, Lopressor 25 mg b.i.d., Lovenox, propylthiouracil 100 mg t.i.d., Pulmicort inhaler, Solu-Medrol, and Xopenex. OBJECTIVE: GENERAL: She is a somewhat frail-appearing very elderly woman. VITAL SIGNS: Her blood pressure is 96/50 with the pulse of 130 in atrial fibrillation, respirations are 14. She is afebrile. HEENT: Normocephalic, atraumatic. NECK: Supple. No JVD noted. CHEST: Bilateral scattered rhonchi and scant wheezes heard. HEART: PMI in normal position. Systolic murmurs present at the lower sternal border and apex. ABDOMEN: Soft and nontender. Normoactive bowel sounds. EXTREMITIES: Resting tremor noted. No edema present. DIAGNOSTIC DATA: Echocardiogram was a limited study, but chamber size appear within normal limits. LV systolic function appears moderately reduced with anteroseptal and apical hypokinesis, mild mitral and tricuspid regurgitation noted, also ejection fraction appeared to be 35%. Potassium 3.7, BUN and creatinine are 34 and 0.8. White count 13, hemoglobin and hematocrit 14.2 and 41.1 and platelet count of 298,000. IMPRESSION: 1. Atrial fibrillation with rapid ventricular response likely exacerbated by persistent hypothyroidism and chronic obstructive pulmonary disease. 2. Abnormal echocardiogram, suggestive of coronary artery disease. 3. Mild mitral and tricuspid regurgitation. 4. Rest of problems as noted. RECOMMENDATIONS: Diltiazem will be held given the inability to administer as the result of low blood pressure. Digoxin will be added at this time for rate control in the interim. Given her advanced age, I am monitoring for digoxin toxicity will be necessary and hopefully, this will not need to be continued buttermaker continuous churn. If her blood pressure allows increased beta-lynn dose would be appropriate as well. We will continue to follow and make further recommendations as appropriate. Saleem Patel MD [facility] # [id number] RUTH ANN
--- NOTE | 2017-08-19 17:41 | PN ---
DATE: 08/19/2017 ENDOCRINOLOGY FOLLOWUP NOTE LOCATION: Room 365. SUBJECTIVE: This is an 87-year-old female with overt thyrotoxicosis presenting here with marked hyperthyroidism both historically, clinically and biochemically with associated constitutional symptoms thereof and has been started on propylthiouracil as tolerated and given. She has significant history of elevated liver transaminases, so that is why her tobacco acreage measurer Dr. Todd discontinued all the Tapazole medication as given. She is being scheduled for radioactive iodine ablation by her tobacco acreage measurer to be done electively as noted. LABORATORY DATA: Her laboratory showed chemistries; BUN of 34, sodium 143, potassium 3.7, chloride 100, CO2 30, glucose 168, and creatinine 0.8. Her latest thyroid study showed total T4 or thyroxine level of 20.8 with free T4 of 4.66 and TSH of less than 0.02. ASSESSMENT: This is an 87-year-old female who is presenting here with constitutional symptoms, progressive shortness of breath, and concomitant resurgence of rapid atrial fibrillation and is now being followed closely for metabolic management. She also has overt thyrotoxicosis presenting here with marked hyperthyroidism, noted both historically, clinically, and biochemically thereof. PLAN OF MANAGEMENT: As discussed with the patient and staff, we will continue her current propylthiouracil given as PTU at 100 mg p.o. t.i.d. after meals as ordered. We will obtain repeat thyroid studies tomorrow morning and we will titrate dose regimen accordingly. We will await reports of the thyroid stimulating immunoglobulin, which will confirm the presence of Graves disease and/or whether we are dealing with related etiology of Graves disease versus open euthyroiditis as noted thereof. We will continue the propylthiouracil or PTU given as 100 mg p.o. t.i.d. and we will titrate incrementally as indicated to optimize metabolic control. We will obtain serial chemistries and supplement accordingly as needed and as mentioned above, we will continue the serial chemistries especially the total and free T4 and TSH to be done serially. We will follow up with you. Katrin Walsh MD
[2017-08-19] MEDS: Digoxin 500 mcg/2ml (0.5 mg/2ml) Inj IV SCH ×2 (18:29→22:34)
[2017-08-19 19:08] LABS: THYROGLOBULIN 0.4 ng/mL (2.8-40.9)
[2017-08-19 22:40] VITALS: PULSE 93
--- NOTE | 2017-08-20 00:10 | PN ---
DATE: 08/19/2017 SUBJECTIVE: An 87-year-old female resting comfortably this morning in bed. She is currently receiving a respiratory treatment. Nursing staff relates there were no problems during the night. PHYSICAL EXAMINATION: GENERAL: She is alert and oriented x3. VITAL SIGNS: Her temperature is 97.4, blood pressure is 107/66, oxygen is 93% reported on room air. LUNGS: Show some scattered rhonchi with diminished breath sounds. HEART: An irregular S1 and S2 rhythm. ABDOMEN: Soft, with positive bowel sounds. EXTREMITIES: No evidence of edema. LABORATORY DATA: WBC 13, RBC 4.66, hemoglobin 14.2, hematocrit 41.1, platelet count is 298. Chemistry shows a normal electrolytes, BUN is 34, creatinine is 0.8. Random blood sugar is 168. Magnesium is 2.3, phosphorous is 4.7, AST is 41. Troponin was less than 0.01. TSH is less than 0.02. ASSESSMENT: 1. Patient presented with exacerbation of chronic obstructive pulmonary disease. 2. Patient presented with new onset atrial fibrillation. 3. Patient presented with hyperthyroidism. PLAN: Patient is currently receiving bronchodilator therapy and steroids for her COPD exacerbation. She is currently on Lopressor and digoxin for her new onset atrial fibrillation, rapid rate and baby aspirin. She has been placed on propylthiouracil for her hyperthyroid disease. Thyroglobulin antibodies and peroxidase are pending. We will continue her Xopenex treatment and she is on Solu-Medrol by Pulmonary, Pulmicort Respules. All clinical findings have been discussed today with the patient. Continue current level of care. Follow up the patient's labs, mild elevation of the white count may be related to the steroids, but need to follow up and monitor the patient. At this time she has no fever. Brook Hahn MD
[2017-08-20 07:08] LABS: BASO # 0.01 K/mm3 (0.0-2.0); BASO % 0.1 % (0.0-3.0); GRAN # 11.87 (1.4-6.5); GRAN % 90.6 % (50.0-68.0); HEMOGLOBIN 14.2 g/dL (12.0-16.0); LYMPH # 0.8 (1.2-3.4); LYMPH % 6.1 % (22.0-35.0); MEAN CELL VOLUME 89.3 fl (80.0-105.0); MEAN CORPUSCULAR HEMOGLOBIN 29.9 pg (25.0-35.0); MEAN CORPUSCULAR HGB CONC 33.5 g/dl (31.0-37.0); MEAN PLATELET VOLUME 10.9 fl (7.0-11.0); MONO # 0.4 (0.1-0.6); MONO % 3.2 % (1.0-6.0); PLATELET COUNT 307 10^3/uL (120.0-450.0); RBC 4.75 10^6/uL (3.5-6.1); RED CELL DISTRIBUTION WIDTH 11.8 % (11.5-14.5); WHITE BLOOD COUNT 13.1 10^3/ul (4.5-11.0)
[2017-08-20 07:25] LABS: ALB/GLOB RATIO 1.3 (1.1-1.8); ALBUMIN 3.6 g/dL (3.0-4.8); ALT/SGPT 32 U/L (7-56); AST/SGOT 32 U/L (14-36); BLOOD UREA NITROGEN 41 mg/dL (7-21); CALCIUM 9.6 mg/dL (8.4-10.5); GFR AFRICAN-AMERICAN > 60; GFR NON-AFRICAN AMERICAN > 60
[2017-08-20 07:28] LABS: FREE T4 4.07 ng/dL (0.78-2.19); T4 17.9 ug/dL (5.5-11.0)
[2017-08-20 08:22] LABS: LYMPHOCYTE 3 % (22.0-35.0); MONOCYTE 2 % (1.0-6.0); NEUTROPHIL 95 % (50.0-70.0)
[2017-08-20 08:23] LABS: PLATELET ESTIMATE NORMAL (NORMAL)
[2017-08-20] MEDS: Budesonide 0.5 mg/2 ml Inhal Susp UD IH SCH ×2 (08:41→20:03)
[2017-08-20] MEDS: Levalbuterol 1.25 MG/3 ML Inhal Soln UD IH SCH ×3 (08:41→20:04)
--- NOTE | 2017-08-20 08:53 | PN ---
DATE: 08/20/2017 PULMONARY NOTE SUBJECTIVE: The patient appears comfortable this morning. She is not short of breath at rest. PHYSICAL EXAMINATION: VITAL SIGNS: Temperature is 98.2, pulse 65, respirations 18-20, blood pressure 133/64. Oxygen saturation on room air is 93%-95%. HEENT: Normocephalic, atraumatic. No JVD. CARDIOVASCULAR: Systolic ejection murmur at the lower left sternal border. No S3 gallop. LUNGS: Decreased breath sounds at the bases. Less rhonchi. No wheezing. EXTREMITIES: Mild edema. No cyanosis, no clubbing. Calves are nontender to palpation. GASTROINTESTINAL: Abdomen is soft, nontender, and nondistended. Bowel sounds are positive. SKIN: No acute rash. NEUROLOGIC: Limited at the present time. IMPRESSION: 1. Acute bronchitis. 2. Chronic obstructive pulmonary disease. 3. Atrial fibrillation. 4. Diabetes mellitus. PLAN: The patient appears comfortable this morning. She is not short of breath at rest. She does state to feeling better overall. On physical exam, there is less bronchospasm noted. I will continue with the current nebulizer treatments, as well as the inhaled Pulmicort for now. I will also try decreasing the intravenous steroids this morning. Inputs by Cardiology and Renal are again noted. The clinical status of the patient has certainly improved - compared to the initial presentation. Hopefully, the patient will be out of bed this morning. I will discuss the above with Dr. Hahn. Wellington Greene MD MTDD
--- NOTE | 2017-08-20 09:11 | CP.PCM.PN ---
Subjective - Date & Time of Evaluation Date of Evaluation: 08/20/17 Time of Evaluation: 07:00 - Subjective Subjective: Stable on 3R. No CP or SOB. V/S noted. AF with mod. VR. Some dips into 40's during the night PE: Lungs: rhonchi Cor: irreg. S1S2 Abd.: soft Ext.: no edema Neuro.: alert I/O= 360/200 recorded Labs noted: WBC 13,100, TFT's noted Echo noted: LVD with EF ~35%, Mild MR and TR Objective - Vital Signs/Intake and Output Vital Signs (last 24 hours): Temp Pulse Resp BP Pulse Ox 98.1 F 91 H 20 132/91 H 96 08/20/17 06:00 08/20/17 06:00 08/20/17 06:00 08/20/17 06:00 08/20/17 06:00 Intake and Output: 08/20/17 08/20/17 06:59 18:59 Intake Total 360 Output Total 200 Balance 160 - Medications Medications: Current Medications Aspirin (Ecotrin) 81 mg PO DAILY [facility] Last Admin: 08/19/17 09:47 Dose: 81 mg Budesonide (Pulmicort Respules) 0.5 mg IH [id number] [facility] Last Admin: 08/20/17 08:41 Dose: 0.5 mg Digoxin (Digoxin) 0.125 mg PO 1400 [facility] Enoxaparin Sodium (Lovenox) 65 mg SC BID [facility] PRN Reason: Protocol Last Admin: 08/19/17 18:30 Dose: 65 mg Levalbuterol HCl (Xopenex) 1.25 mg IH TIDRESP [facility] Last Admin: 08/20/17 08:41 Dose: 1.25 mg Levalbuterol HCl (Xopenex) 1.25 mg IH [id number] PRN PRN Reason: Shortness of Breath Methylprednisolone (Solu-Medrol) 20 mg IVP Q12 [facility] Metoprolol Tartrate (Lopressor) 25 mg PO BID [facility] Last Admin: 08/19/17 18:30 Dose: 25 mg Propylthiouracil (Propylthiouracil) 100 mg PO TID [facility] Last Admin: 08/19/17 18:30 Dose: 100 mg - Labs Labs: 08/20/17 06:00 08/20/17 06:00 PT 14.5 SECONDS (9.4-12.5) H 08/17/17 19:25 INR 1.27 (0.93-1.08) H 08/17/17 19:25 APTT 25.0 Seconds (25.1-36.5) L 08/17/17 19:25 Assessment and Plan - Assessment and Plan (Free Text) Assessment: SOB/Weak/Sputum Production/Weakness/Fatigue AF with RVR Hyperthyroidism, recurrence COPD H/O parathyroidectomy DJD Glaucoma Plan: As per Endo., Pulm., Dr. Hahn Continue metoprolol and dig. Switch Lovenox to Eliquis. Nuclear stress test as out-pt, once thyroid controlled
[2017-08-20] MEDS: Enoxaparin 80 mg Syringe SC SCH ×2 (10:52→17:45)
[2017-08-20] MEDS: MethylPREDNISolone 40 mg Vial IVP SCH ×2 (10:53→21:24)
--- NOTE | 2017-08-20 14:06 | IP.NPCORE ---
COPD Progress Note - COPD Progress Note FEV1/FVC<70: No Plan to assess at outpatient follow up: Yes Symptoms:: Increase in Dyspnea, Cough Initial CXR:: 08/17- No active disease Date:: 08/17/17 Oxygen Saturation/Pulse Oximetry:: 91 ABG Not Indicated (Symptoms Improved): Yes Nebulizers Q2-4 hrs:: Duonebs/Albuterol Therapy Antibiotics Not Indicated: Yes Systemic Steroids w/ methylprednisolone Name/Dose/Frequency:: solumedrol 20 q12 Oxygen Delivery Method: Nasal Cannula
--- NOTE | 2017-08-20 18:59 | PN ---
DATE: 08/20/2017 ENDOCRINOLOGY FOLLOWUP NOTE LOCATION: Room 365. SUBJECTIVE: This is [id number] female presenting here with rapid atrial fibrillation and supervening marked hyperthyroidism both historically, clinically and biochemically and is now being followed closely for metabolic management. She also developed adverse side effects to the previous therapy with Tapazole medications with supervening elevated liver transaminases and so we discontinued the Tapazole medications over a year ago as noted. However, she presented here with marked hyperthyroidism and extremely elevated total T4 or thyroxine levels as noted. She is actually being scheduled for radioactive iodine ablation upon discharge from this hospital and is being arranged by her sand blaster, Dr. Doretha Todd in [place]. PLAN OF MANAGEMENT: We will continue propylthiouracil given as 100 mg p.o. t.i.d. after meals as ordered. She can be cleared for eventual transfer to TCU for physical therapy and underlying deconditioning as noted. We will also reinforce the need for continuation of the propylthiouracil given as 100 mg p.o. t.i.d. and we will titrate incrementally as indicated to optimize metabolic control. We also discussed with the patient regarding the eventual need for radioactive iodine ablation on the outpatient and she prefers actually [facility], but as discussed at length at the bedside, it would be the same radioactive iodine ablation procedure and dosing whether it is a local [facility] or a [facility] in [place] or [place]. We will discuss with the primary physician regarding the upper mentioned therapeutic options. We will follow. Katrin Walsh MD
[2017-08-21] MEDS: Levalbuterol 1.25 MG/3 ML Inhal Soln UD IH SCH ×2 (07:53→13:38)
[2017-08-21] MEDS: Budesonide 0.5 mg/2 ml Inhal Susp UD IH SCH (07:54)
[2017-08-21 07:59] VITALS: RESP 22; TEMP 97; O2SAT 93
--- NOTE | 2017-08-21 08:25 | PN ---
DATE: 08/20/2017 SUBJECTIVE: An 87-year-old female with COPD, new-onset atrial fibrillation with rapid ventricular rate, Graves disease. The patient is currently being followed by Cardiology, Pulmonary, and Endocrinology. PHYSICAL EXAMINATION: VITAL SIGNS: Show a temperature of 97, pulse of 78, blood pressure is 103/51, oxygen saturation is 91% on nasal cannula 2 L. LUNGS: Clear with diminished breath sounds at the bases. HEART: Has an irregular S1 and S2 rhythm. ABDOMEN: Soft, with positive bowel sounds. EXTREMITIES: Show no evidence of edema. IMPRESSION: She is currently receiving propylthiouracil 100 t.i.d. prescribed by Endocrinology for her underlying Graves disease. At that certain point in time when the patient is clinically stable, she will have her radioactive iodine thyroid ablation procedure. She is being followed by Cardiology, on Lopressor 25 mg b.i.d., digoxin 0.125 mg daily, Ecotrin 81 mg daily, and she is on Lovenox 65 mg b.i.d. for her underlying atrial fibrillation. She is also being followed by Pulmonary. She is on Xopenex, Solu-Medrol, and Pulmicort Respules for her underlying chronic obstructive pulmonary disease. She is receiving physical therapy. We will discuss with the patient and her family as well as with the individual consultants, the timing of planning for this patient to undergo her thyroid ablation. Brook Hahn MD
--- NOTE | 2017-08-21 08:39 | CP.PCM.PN ---
Subjective - Date & Time of Evaluation Date of Evaluation: 08/21/17 Time of Evaluation: 07:00 - Subjective Subjective: Stable on 3R. No CP or SOB. She feels better. V/S noted. AF with mod. VR. PE: Lungs: rhonchi Cor: irreg. S1S2 Abd.: soft Ext.: no edema Neuro.: alert Labs 08/20 noted: WBC 13,100, TFT's noted Echo noted: LVD with EF ~35%, Mild MR and TR Objective - Vital Signs/Intake and Output Vital Signs (last 24 hours): Temp Pulse Resp BP Pulse Ox 97.0 F L 70 22 153/78 H 93 L 08/21/17 07:58 08/21/17 07:58 08/21/17 07:58 08/21/17 07:58 08/21/17 07:58 Intake and Output: 08/21/17 08/21/17 06:59 18:59 Intake Total 420 Balance 420 - Medications Medications: Current Medications Aspirin (Ecotrin) 81 mg PO DAILY [facility] Last Admin: 08/20/17 10:53 Dose: 81 mg Budesonide (Pulmicort Respules) 0.5 mg IH [id number] [facility] Last Admin: 08/21/17 07:54 Dose: 0.5 mg Digoxin (Digoxin) 0.125 mg PO 1400 [facility] Enoxaparin Sodium (Lovenox) 65 mg SC BID [facility] PRN Reason: Protocol Last Admin: 08/20/17 17:45 Dose: 65 mg Levalbuterol HCl (Xopenex) 1.25 mg IH TIDRESP [facility] Last Admin: 08/21/17 07:53 Dose: 1.25 mg Levalbuterol HCl (Xopenex) 1.25 mg IH [id number] PRN PRN Reason: Shortness of Breath Methylprednisolone (Solu-Medrol) 20 mg IVP Q12 [facility] Last Admin: 08/20/17 21:24 Dose: 20 mg Metoprolol Tartrate (Lopressor) 25 mg PO BID [facility] Last Admin: 08/20/17 17:45 Dose: 25 mg Propylthiouracil (Propylthiouracil) 100 mg PO TID [facility] Last Admin: 08/20/17 17:45 Dose: 100 mg - Labs Labs: 08/20/17 06:00 08/20/17 06:00 PT 14.5 SECONDS (9.4-12.5) H 08/17/17 19:25 INR 1.27 (0.93-1.08) H 08/17/17 19:25 APTT 25.0 Seconds (25.1-36.5) L 08/17/17 19:25 Assessment and Plan - Assessment and Plan (Free Text) Assessment: SOB/Weak/Sputum Production/Weakness/Fatigue AF with RVR Echo: mod LVD, EF ~ 35%, Mild MR and TR Hyperthyroidism, recurrence of Grave's Disease COPD H/O parathyroidectomy DJD Glaucoma Plan: As per Endo., Pulm., Dr. Hahn Continue metoprolol and dig. Switch Lovenox to Eliquis. Nuclear stress test as out-pt, once thyroid controlled
[2017-08-21] MEDS: MethylPREDNISolone 40 mg Vial IVP SCH (09:29)
[2017-08-21 09:36] VITALS: BP 158/78
[2017-08-21 11:02] LABS: BASO # 0.01 K/mm3 (0.0-2.0); BASO % 0.1 % (0.0-3.0); GRAN # 9.19 (1.4-6.5); GRAN % 88.1 % (50.0-68.0); HEMOGLOBIN 13.3 g/dL (12.0-16.0); LYMPH # 0.6 (1.2-3.4); MEAN CELL VOLUME 89.8 fl (80.0-105.0); MEAN CORPUSCULAR HEMOGLOBIN 30.2 pg (25.0-35.0); MEAN CORPUSCULAR HGB CONC 33.6 g/dl (31.0-37.0); MEAN PLATELET VOLUME 10.7 fl (7.0-11.0); MONO # 0.6 (0.1-0.6); MONO % 5.8 % (1.0-6.0); RBC 4.41 10^6/uL (3.5-6.1); RED CELL DISTRIBUTION WIDTH 11.7 % (11.5-14.5); WHITE BLOOD COUNT 10.4 10^3/ul (4.5-11.0)
--- NOTE | 2017-08-21 11:06 | PN ---
DATE: 08/21/2017 PULMONARY NOTE SUBJECTIVE: The patient appears comfortable this morning. She is not short of breath at rest. PHYSICAL EXAMINATION VITAL SIGNS: Last temperature recorded is 97.8, pulse is 74, respirations 18, blood pressure 124/52. Oxygen saturation on nasal cannula is 98%. HEENT: Normocephalic, atraumatic. No JVD. CARDIOVASCULAR: Systolic ejection murmur at the lower left sternal border. No S3 gallop. LUNGS: Improved breath sounds at the bases. Minimal/less rhonchi. No wheezing. EXTREMITIES: Mild edema. No cyanosis, no clubbing. Calves are nontender to palpation. GI: Abdomen is soft, nontender and nondistended. Bowel sounds are positive. SKIN: No acute rash. NEUROLOGIC: Limited at the present time. IMPRESSION: 1. Acute bronchitis. 2. Chronic obstructive pulmonary disease. 3. Atrial fibrillation. 4. Diabetes mellitus. PLAN: The patient appears comfortable this morning. She is not short of breath at rest. She does state to feeling much better overall. On physical exam, her bronchospasm continues to resolve. In addition, the alveolar arterial gradient also continues to resolve. I will continue with the current nebulizer treatments and low-dose intravenous steroids (decreased yesterday) for now. Inputs by Cardiology and Renal are noted. Clinical status of the patient is certainly improved - compared to the initial presentation. Plan is for possible transfer to the Transitional Unit. I will discuss the above with Dr. Hahn. Wellington Greene MD MTDD
[2017-08-21 11:57] VITALS: PULSE 108
--- NOTE | 2017-08-21 13:55 | PN ---
DATE: 08/21/2017 ENDOCRINOLOGY FOLLOWUP NOTE LOCATION: In room 365. SUBJECTIVE: This is an 87-year-old female presenting here with rapid atrial fibrillation and concomitant chest pain and also evaluated to be in overt thyrotoxicosis and is being followed closely now for metabolic management. She has improved clinically with substance of the dizziness and lightheadedness, although her energy level is still suboptimal at this time with persistent insomnia and disruptive sleep patterns expected with the marked hyperthyroidism thereof. Her latest chemistry showed a BUN of 41, sodium 143, potassium 3.9, chloride 102, CO2 of 27, glucose 147 and creatinine 0.8. The repeat thyroid study showed a T4 of 17.9 with a free T4 of 4.07 and a TSH of less than 0.02. ASSESSMENT: This is an 87-year-old female with overt thyrotoxicosis, presenting here with marked hyperthyroidism both historically, clinically and biochemically related to recent drug omission of her Tapazole medications because of elevated liver transaminases. She has underlying Graves disease with a diffuse toxic goiter as noted. PLAN OF MANAGEMENT: As discussed with the patient and the staff, we will continue her PTU given as 100 mg p.o. t.i.d. after meals as ordered. We will obtain serial chemistries and supplement accordingly as needed. We will also obtain serial thyroid studies and liver function studies as indicated. A lengthy bedside discussion was undertaken with the patient regarding the need for radioactive iodine ablation to be done on the outpatient electively whether in [facility] or locally in [facility] in [facility] and the patient will discuss this with her family. The benefits and risks of radioactive iodine were explained in detail to the patient at bedside. We will obtain serial chemistries and serial thyroid studies accordingly. Katrin Walsh MD
[2017-08-21] MEDS ORDERED: Digoxin 125 mcg (0.125 mg) Tab PO SCH (14:00)
== END 2017-08-21 15:53 | DRG 644 ==
LOC: ED 18:24 → ERH 19:57 → ICU 22:10 → 3RNO 08-18 16:30
PROVIDERS: ADMIT Internal Medicine; ATTEND Internal Medicine
PROC: 3E0F7GC Introduction of Other Therapeutic Substance into Respiratory Tract, Via Natural or Artificial Opening (ICD-10-PCS; principal; 2017-08-18)
DX: E05.00 Thyrotoxicosis with diffuse goiter without thyrotoxic crisis or storm (principal); J44.1 Chronic obstructive pulmonary disease with (acute) exacerbation; J44.0 Chronic obstructive pulmonary disease with (acute) lower respiratory infection; I48.0 Paroxysmal atrial fibrillation; I08.1 Rheumatic disorders of both mitral and tricuspid valves; J20.9 Acute bronchitis, unspecified; E11.9 Type 2 diabetes mellitus without complications; E06.3 Autoimmune thyroiditis; I50.9 Heart failure, unspecified; H40.20X0 Unspecified primary angle-closure glaucoma, stage unspecified; I87.2 Venous insufficiency (chronic) (peripheral); M19.90 Unspecified osteoarthritis, unspecified site; Z87.01 Personal history of pneumonia (recurrent); Z87.891 Personal history of nicotine dependence; Z88.0 Allergy status to penicillin

== ENCOUNTER 2017-08-21 15:56 | Inpatient (IN) | payer OTHER, BC ==
[2017-08-21] MEDS ORDERED: Enoxaparin 60 mg Syringe SC SCH (17:30)
[2017-08-21 17:37] VITALS: BMI 24.3
[2017-08-21] MEDS ORDERED: Pneumococcal 23-Valent Vaccine IM ONE (17:37)
[2017-08-21] MEDS: Levalbuterol 1.25 MG/3 ML Inhal Soln UD IH SCH (20:17)
[2017-08-21] MEDS: Budesonide 0.5 mg/2 ml Inhal Susp UD IH SCH (20:17)
[2017-08-21] MEDS: MethylPREDNISolone 40 mg Vial IVP SCH (21:21)
[2017-08-22 07:36] LABS: HEMOGLOBIN 14.6 g/dL (12.0-16.0); MEAN CELL VOLUME 90.6 fl (80.0-105.0); MEAN CORPUSCULAR HEMOGLOBIN 30.5 pg (25.0-35.0); MEAN CORPUSCULAR HGB CONC 33.6 g/dl (31.0-37.0); MEAN PLATELET VOLUME 10.7 fl (7.0-11.0); RBC 4.79 10^6/uL (3.5-6.1); RED CELL DISTRIBUTION WIDTH 11.7 % (11.5-14.5); WHITE BLOOD COUNT 10.1 10^3/ul (4.5-11.0)
[2017-08-22] MEDS: Levalbuterol 1.25 MG/3 ML Inhal Soln UD IH SCH ×3 (07:37→21:16)
[2017-08-22] MEDS: Budesonide 0.5 mg/2 ml Inhal Susp UD IH SCH ×2 (07:37→21:16)
[2017-08-22 07:41] LABS: BLOOD UREA NITROGEN 28 mg/dL (7-21); CALCIUM 9.4 mg/dL (8.4-10.5); GFR AFRICAN-AMERICAN > 60; GFR NON-AFRICAN AMERICAN > 60
[2017-08-22] MEDS: MethylPREDNISolone 40 mg Vial IVP SCH (09:04)
[2017-08-22] MEDS: Tiotropium 18 mcg Cap For Inhalation IH SCH (09:05)
--- NOTE | 2017-08-22 14:38 | PN ---
DATE: 08/22/2017 PULMONARY PROGRESS NOTE SUBJECTIVE: Patient was seen and examined on Transitional Care Unit. She is receiving inhalation therapy with low albuterol and budesonide. She is also on Spiriva and low-dose Solu-Medrol. PHYSICAL EXAMINATION: HEAD, EAR, NOSE AND THROAT: Within normal limits. CARDIOVASCULAR: S1 and S2. No S3. Regular. PULMONARY: Diminished breath sound bilaterally. There is no rhonchi, rales or wheezing. GI: Soft, nontender. No organomegaly. : Within normal limits EXTREMITIES: No pedal edema. SKIN: Clear with no cyanosis and no skin rashes. NEUROLOGIC: No focal deficits. ASSESSMENT: 1. Chronic obstructive pulmonary disease. 2. Acute bronchitis. 3. Hyperthyroidism. 4. Deconditioning. PLAN: Patient's condition has improved. She is not short of breath. She is off oxygen. We will change to oral prednisone. Discharge plans will be formulated by Dr. Hahn, her medical attending. Inhalation therapy is continuing. Willi Ch MD MTDD
[2017-08-22] MEDS: Digoxin 125 mcg (0.125 mg) Tab PO SCH (15:09)
[2017-08-23] MEDS: Budesonide 0.5 mg/2 ml Inhal Susp UD IH SCH ×2 (07:39→21:14)
[2017-08-23] MEDS: Levalbuterol 1.25 MG/3 ML Inhal Soln UD IH SCH ×3 (07:39→21:14)
--- NOTE | 2017-08-23 07:52 | PN ---
DATE: 08/22/2017 SUBJECTIVE: An 87-year-old female on the Transitional Care Unit, receiving physical therapy and occupational therapy. The patient is being treated for Graves disease and new-onset atrial fibrillation. PHYSICAL EXAMINATION: VITAL SIGNS: Her temp is 97.7, her blood pressure is 125/58, respiratory rate is 18. LUNGS: Show diminished breath sounds at the bases. HEART: An irregular S1 and S2 rhythm. ABDOMEN: Soft with positive bowel sounds. EXTREMITIES: Show no evidence of edema. NEUROLOGICAL: She is alert and oriented x3. LABORATORY DATA: Shows WBC of 10.1, RBC of 4.79, hemoglobin 14.6, hematocrit 43.4, platelet count 315,000. Chemistry shows a sodium of 144, potassium is 4.3, which is a repeat. Chloride is 101, CO2 is 32, BUN is 28, creatinine is 0.7. TSH level is less than 0.02. Random blood sugar is 123. Calcium is 9.4. ASSESSMENT AND PLAN: The patient is currently receiving bronchodilator therapy for underlying chronic obstructive pulmonary disease. She is on Eliquis, digoxin and Lopressor for her atrial fibrillation, prednisone p.o. for her chronic obstructive pulmonary disease and propylthiouracil for her Graves disease. We will continue current medical care. The patient will ultimately have her thyroid gland ablated with radioactive iodine. Continue current medical care as per the recommendations of the individual consultants. Brook Hahn MD
[2017-08-23 08:08] LABS: ALB/GLOB RATIO 1.2 (1.1-1.8); ALBUMIN 2.9 g/dL (3.0-4.8); ALT/SGPT 36 U/L (7-56); AST/SGOT 23 U/L (14-36); BLOOD UREA NITROGEN 35 mg/dL (7-21); CALCIUM 8.9 mg/dL (8.4-10.5); GFR AFRICAN-AMERICAN > 60; GFR NON-AFRICAN AMERICAN > 60
[2017-08-23 08:12] LABS: BASO # 0.01 K/mm3 (0.0-2.0); BASO % 0.1 % (0.0-3.0); EOS # 0.1 (0.0-0.7); EOS % 1.4 % (1.5-5.0); GRAN # 5.22 (1.4-6.5); GRAN % 62.7 % (50.0-68.0); HEMOGLOBIN 13.5 g/dL (12.0-16.0); LYMPH # 2.6 (1.2-3.4); LYMPH % 30.9 % (22.0-35.0); MEAN CELL VOLUME 89.7 fl (80.0-105.0); MEAN CORPUSCULAR HEMOGLOBIN 30.2 pg (25.0-35.0); MEAN CORPUSCULAR HGB CONC 33.7 g/dl (31.0-37.0); MEAN PLATELET VOLUME 10.7 fl (7.0-11.0); MONO # 0.4 (0.1-0.6); MONO % 4.9 % (1.0-6.0); RBC 4.47 10^6/uL (3.5-6.1); RED CELL DISTRIBUTION WIDTH 11.9 % (11.5-14.5); WHITE BLOOD COUNT 8.3 10^3/ul (4.5-11.0)
[2017-08-23 08:23] LABS: FREE T4 2.61 ng/dL (0.78-2.19); T4 12.6 ug/dL (5.5-11.0)
[2017-08-23] MEDS: Tiotropium 18 mcg Cap For Inhalation IH SCH (09:28)
--- NOTE | 2017-08-23 11:24 | PN ---
DATE: 08/23/2017 ENDOCRINOLOGY FOLLOWUP NOTE LOCATION: In room 327, [facility]. SUBJECTIVE: This is an 87-year-old female with overt thyrotoxicosis and presenting here with rapid atrial fibrillation and is now improving clinically and hemodynamically as noted thereof. Her energy level has improved remarkably over the last few days with subsidence of the dizziness and lightheadedness as noted. She remains clinically and biochemically hyperthyroxinemic, but is improving remarkably as noted. The latest thyroid studies showed a T4 of 12.6 mcg/dL with a free T4 of 2.61 and a TSH of less than 0.02. Her chemistry showed a BUN of 35, sodium 141, potassium 4.4, chloride 103, CO2 of 30, glucose 86 and creatinine 0.7. ASSESSMENT: This is an 87-year-old female with Graves' disease and presenting here with overt thyrotoxicosis with marked hyperthyroidism both historically, clinically and biochemically as noted thereof. She also has supervening rapid atrial fibrillation that has improved remarkably as noted and is hemodynamically stable at this time. PLAN OF MANAGEMENT: As discussed with the patient and staff, we will continue the modified dosing regimen, which is a higher dose of propylthiouracil given as 100 mg p.o. t.i.d. after meals as ordered, but this is a remarkable response of the patient to propylthiouracil because of her previous adverse side effects to Tapazole with elevated liver transaminases. Because of the upper mentioned remarkable biochemical response to PTU with a rapid decline of the total T4 or thyroxine levels, now as noted, would then defer the initiation of radioactive iodine therapy which can cause another metabolic and clinical set back for the patient causing severe hypothyroidism. As she has improved remarkably with this change of medications to PTU, would continue the upper mentioned therapy at the lower dosing upon discharge and hold off the radioactive iodine ablation therapy. With her advanced age and also recent cardiac decompensation with rapid atrial fibrillation, we will be very careful to her body with radioactive iodine ablation. We will discuss with the primary physician regarding the upper mentioned. We will follow. Katrin Walsh MD
[2017-08-23] MEDS: Digoxin 125 mcg (0.125 mg) Tab PO SCH (15:00)
--- NOTE | 2017-08-24 07:21 | PN ---
DATE: 08/24/2017 PULMONARY NOTE SUBJECTIVE: The patient appears very comfortable this morning. She is not short of breath at rest. OBJECTIVE: VITAL SIGNS (last noted in the computer): Temperature is 97.9, pulse 66, respirations 18, blood pressure 112/54. Oxygen saturation on room air is 94-95%. HEENT: Normocephalic, atraumatic. No JVD. CARDIOVASCULAR: Systolic ejection murmur at the lower left sternal border. No S3 gallop. LUNGS: Improved breath sounds at the bases. Minimal/less rhonchi. No wheezing. EXTREMITIES: Mild edema. No cyanosis, no clubbing. Calves are nontender to palpation. GI: Abdomen is soft, nontender, nondistended. Bowel sounds are positive. SKIN: No acute rash. NEUROLOGIC: Exam limited at the present time. IMPRESSION: 1. Acute bronchitis. 2. Chronic obstructive pulmonary disease. 3. Atrial fibrillation. 4. Diabetes mellitus. PLAN: The patient appears very comfortable this morning. She is not short of breath at rest. She does state to feeling much better overall. On physical exam, her bronchospasm continues to resolve. In addition, the alveolar arterial gradient also continues to resolve. I will continue with the current nebulizer treatments and low-dose oral prednisone for now. Input by Endocrine is also noted. Clinical status of the patient is significantly improved overall. I will discuss the above with Dr. Hahn. Wellington Greene MD RUTH ANN
[2017-08-24] MEDS: Budesonide 0.5 mg/2 ml Inhal Susp UD IH SCH ×2 (07:24→22:00)
[2017-08-24] MEDS: Levalbuterol 1.25 MG/3 ML Inhal Soln UD IH SCH ×3 (07:24→22:00)
--- NOTE | 2017-08-24 08:36 | PN ---
DATE: 08/22/2017 ENDOCRINOLOGY FOLLOWUP NOTE LOCATION: In TCU, room 327. SUBJECTIVE: This is an 87-year-old female with Grave disease and marked hyperthyroidism, presenting with rapid atrial fibrillation to the medical floor and has since then improved clinically and hemodynamically as noted thereof. She has been transferred to TCU for deconditioning and initiation of physical and occupational therapy thereof. Her latest chemistry showed a BUN of 28. Sodium 144, potassium 5.5, chloride 101, CO2 of 32. Glucose 123. Creatinine 0.7. Her TSH level is less than 0.02. The last recorded level in the medical floor of her thyroxine values showed a T4 of 17.9 with a free T4 of 4.07 and a TSH of less than 0.02. ASSESSMENT: This is an 87-year-old female with overt thyrotoxicosis, presenting here with rapid atrial fibrillation and has since then improved clinically and hemodynamically as noted thereof. She has overt hyperthyroidism noted historically, clinically, and biochemically as noted and this was actually related to drug omission because of recent elevation of her liver transaminases on Tapazole medications as given. PLAN OF MANAGEMENT: At this time, the patient has been switched over to propylthiouracil or PTU medical therapy for management of hyperthyroidism with a slow, but gradual improvement of her thyroid indices thereof. We will continue the PTU given as 100 mg p.o. t.i.d. after meals as ordered. We will titrate incrementally as indicated to optimize metabolic control. We will obtain serial chemistries and supplement accordingly as needed. We will obtain serial chemistries and also serial thyroid studies and titrate her dose regimen accordingly. The patient will be scheduled for radioactive iodine ablation on the outpatient and the patient is aware of the above-mentioned procedure. We will follow. Katrin Walsh MD
--- NOTE | 2017-08-24 08:39 | PN ---
DATE: 08/22/2017 SUBJECTIVE: An 87-year-old female with atrial fibrillation, new in onset; Graves disease; history of COPD. The patient has been admitted to the transitional care unit for physical and occupational therapy and she continues her medical management for the above-mentioned medical problem. ALLERGIES: SHE HAS AN ALLERGY TO PENICILLIN. MEDICATIONS: Her active medications are digoxin 0.125 mg daily, Eliquis 5 mg twice a day, Lopressor 25 mg twice a day, prednisone 20 mg daily, propylthiouracil 100 mg daily, Pulmicort 0.5 mg every 12 hours, Spiriva 18 mcg daily and Xopenex 1.25 mg t.i.d. PHYSICAL EXAMINATION GENERAL: She is alert and oriented x3 Cor irreg S1S2 Lungs clear Abdomen soft bs pos Ext no edema Plan continue current care MTDD
--- NOTE | 2017-08-24 09:19 | PN ---
DATE: 08/23/2017 SUBJECTIVE: Patient is an 87-year-old patient of Dr. Hahn, transferred to TCU for deconditioning, rehab, and physical therapy. PAST MEDICAL HISTORY: Patient has a significant past medical history of, 1. Chronic AFib. 2. Hyperthyroidism. 3. History of COPD. 4. [id number] diabetes. PHYSICAL EXAMINATION: GENERAL: Patient is lying in bed, seems to be comfortable, not in any distress. Eating, tolerating, communicative. Having meaningful conversation. VITAL SIGNS: She is afebrile, pulse 66, respirations 18, blood pressure 112/54. HEAD AND NECK: Nonicteric sclerae, pink conjunctivae. No thyromegaly. No lymphadenopathy. LUNGS: Bilateral fair airflow. No rhonchi or crackles. HEART: S1, S2 audible. No murmur. ABDOMEN: Soft, nontender. No rebound. No guarding. NEUROLOGIC: She is awake, alert, oriented, communicative. Moves all extremities. LABORATORY DATA: WBC is 8.3, hemoglobin 13, hematocrit 40, platelets 254. Chemistries: Sodium 141, potassium 4.4, chloride 103, CO2 of 30, BUN 35, creatinine 0.7, blood sugar of 86. LFTs are within normal limits. T4 is 2.61, thyroxine is 12.6, TSH is 0.02. Digoxin level is 1.1. ASSESSMENT: 1. Hyperthyroidism. 2. Hypertension. 3. Hyperlipidemia. 4. Chronic obstructive pulmonary disease. 5. Atrial fibrillation. PLAN: MAR reviewed, seems to be appropriate. Continue current medication. Encouraged ambulation. Suzie Vargas MD
[2017-08-24] MEDS: Tiotropium 18 mcg Cap For Inhalation IH SCH (09:22)
[2017-08-24] MEDS: Digoxin 125 mcg (0.125 mg) Tab PO SCH (14:51)
--- NOTE | 2017-08-24 16:57 | PN ---
DATE: 08/24/2017 ENDOCRINOLOGY FOLLOWUP NOTE LOCATION: 327, [facility]. SUBJECTIVE: This is an 87-year-old female with overt hyperthyroidism both historically, clinically, and biochemically and presenting here with rapid atrial fibrillation and has since then improved clinically and hemodynamically as noted thereof. She has been placed on propylthiouracil or PTU because of an adverse side effect to Tapazole on the outpatient with elevated liver transaminases as noted thereof. She has tolerated very well the PTU therapy as given and the latest thyroid study showed a T4 of 12.6 with a free T4 of 2.61 and a TSH of less than 0.02. Her chemistry showed a BUN of 35, sodium 141, potassium 4.4, chloride 103, CO2 of 30, glucose 86, and creatinine 0.7. So, at this time, we will continue the PTU given as 100 mg p.o. t.i.d. after meals as ordered and we will modify accordingly to optimize metabolic control. Because of the remarkable response to propylthiouracil and remarkable decrement of her T4 or thyroxine levels, we will prudently hold off the initiation of radioactive iodine ablation therapy, to be done on the outpatient. With her advanced age and recent presentation with cardiac decompensation and rapid atrial fibrillation, we will be very cautious in initiating the aforementioned modality of treatment and we will observe her clinical and biochemical response accordingly. We will follow. Katrin Walsh MD
--- NOTE | 2017-08-24 21:48 | PN ---
DATE: 08/24/2017 SUBJECTIVE: An 87-year-old female in the Transitional Care Unit. Nursing staff relates that there were no particular problems during the night. PHYSICAL EXAMINATION: VITAL SIGNS: Temp is 98, blood pressure is 133/62, oxygen sat is 98% on room air, respiratory rate is 16. She is currently in the gym on the rehab unit, receiving physical therapy. GENERAL: She is alert and oriented x3. NECK: Supple. There is no JVD. LUNGS: Clear with diminished breath sounds at the bases. HEART: S1, S2 rhythm. ABDOMEN: Soft,scaphoid, positive bowel sounds, regular rhythm. ASSESSMENT AND PLAN: 1. The patient is being treated with propylthiouracil by Endocrinology for her Graves disease. 2. The patient is being treated by Cardiology for her new onset atrial fibrillation, on digoxin, Eliquis, Lopressor. 3. She is also being followed by Pulmonary for her chronic obstructive pulmonary disease, on prednisone and Spiriva and Pulmicort and Xopenex. Continue current level of care. Follow the patient closely. Brook Hahn MD
[2017-08-25 07:29] LABS: BASO # 0.01 K/mm3 (0.0-2.0); BASO % 0.1 % (0.0-3.0); EOS # 0.4 (0.0-0.7); GRAN # 6.29 (1.4-6.5); GRAN % 59.7 % (50.0-68.0); HEMOGLOBIN 13.5 g/dL (12.0-16.0); LYMPH # 3.3 (1.2-3.4); LYMPH % 31.6 % (22.0-35.0); MEAN CELL VOLUME 89.9 fl (80.0-105.0); MEAN CORPUSCULAR HEMOGLOBIN 29.7 pg (25.0-35.0); MEAN CORPUSCULAR HGB CONC 33.1 g/dl (31.0-37.0); MEAN PLATELET VOLUME 10.7 fl (7.0-11.0); MONO # 0.5 (0.1-0.6); MONO % 4.6 % (1.0-6.0); RBC 4.54 10^6/uL (3.5-6.1); RED CELL DISTRIBUTION WIDTH 12.1 % (11.5-14.5); WHITE BLOOD COUNT 10.5 10^3/ul (4.5-11.0)
[2017-08-25] MEDS: Levalbuterol 1.25 MG/3 ML Inhal Soln UD IH SCH ×3 (07:29→20:06)
[2017-08-25] MEDS: Budesonide 0.5 mg/2 ml Inhal Susp UD IH SCH ×2 (07:29→20:06)
[2017-08-25 08:02] LABS: FREE T4 2.08 ng/dL (0.78-2.19); T4 10.9 ug/dL (5.5-11.0)
[2017-08-25 08:09] LABS: ALB/GLOB RATIO 1.2 (1.1-1.8); ALBUMIN 2.7 g/dL (3.0-4.8); ALT/SGPT 31 U/L (7-56); AST/SGOT 20 U/L (14-36); BLOOD UREA NITROGEN 25 mg/dL (7-21); CALCIUM 8.5 mg/dL (8.4-10.5); GFR AFRICAN-AMERICAN > 60; GFR NON-AFRICAN AMERICAN > 60
--- NOTE | 2017-08-25 08:19 | PN ---
DATE: 08/25/2017 PULMONARY NOTE SUBJECTIVE: The patient appears very comfortable this morning. She is not short of breath at rest. OBJECTIVE: VITAL SIGNS: Temperature is 98.1, pulse 70, respirations 16, blood pressure 133/62. Oxygen saturation on room air is 98%. HEENT: Normocephalic, atraumatic. No JVD. CARDIOVASCULAR: Systolic ejection murmur at the lower left sternal border. No S3 gallop. LUNGS: Very minimal/less rhonchi. No wheezing. EXTREMITIES: Mild edema. No cyanosis, no clubbing. Calves are nontender to palpation. GI: Abdomen is soft, nontender and nondistended. Bowel sounds are positive. SKIN: No acute rash. NEUROLOGIC: Exam limited at the present time. IMPRESSION: 1. Acute bronchitis. 2. Chronic obstructive pulmonary disease. 3. Atrial fibrillation. 4. Diabetes mellitus. PLAN: The patient appears very comfortable this morning. She is not short of breath at rest. She does state to feeling much better overall. On physical exam, her bronchospasm continues to resolve. In addition, the oxygen saturation on room air is now 98%. I will continue with the current nebulizer treatments and decrease the oral steroids this morning. Input by Endocrine and Internal Medicine are also noted. Clinical status of the patient is significantly improved overall. I will discuss the above with Dr. Hahn. Wellington Greene MD MTDD
[2017-08-25] MEDS: Tiotropium 18 mcg Cap For Inhalation IH SCH (10:17)
--- NOTE | 2017-08-25 10:44 | PN ---
DATE: 08/25/2017 SUBJECTIVE: An 87-year-old female currently exercising in the rehab room at the Transitional Care Unit. Clinically, she is feeling better this morning. Staff relates there were no problems during the night. PHYSICAL EXAMINATION: GENERAL: She is alert and oriented x3. VITAL SIGNS: Her temp is 98.1, her blood pressure is 106/49, her pulse is 63, respiratory rate is 16, oxygen sat is 98% on room air. LUNGS: Shows diminished breath sounds at the bases. HEART: Irregular S1, S2 rhythm. ABDOMEN: Soft with positive bowel sounds. EXTREMITIES: Show no evidence of edema. LABORATORY DATA: Shows a WBC of 10.5, RBC of 4.54, hemoglobin 13.5, hematocrit of 40.8, platelet count is 255. Chemistry shows a sodium of 141, potassium 4.1, chloride 105, CO2 of 29, BUN is 25, creatinine is 0.7, LFT's are normal. Her TSH level is less than 0.02. Her dig level is 1.1. MEDICATIONS: At this time, the patient is on digoxin 0.125 mg daily, Eliquis 5 mg b.i.d., Lopressor 25 mg b.i.d., prednisone 10 mg daily, propylthiouracil 100 mg t.i.d., Pulmicort Respules 0.5 mg every 12 hours, Spiriva 18 mcg daily and Xopenex 1.25 mg inhaled t.i.d. ASSESSMENT: 1. The patient has recently new onset atrial fibrillation. 2. She has Graves disease. 3. She has underlying chronic obstructive pulmonary disease. PLAN: She currently is being receiving occupational and physical therapy. Continues to be followed by Endocrinology and Pulmonary. We will continue her respiratory treatments for her COPD, her PTU for her Graves disease. Notes of Pulmonary and Endocrinology are appreciated. We will continue current level of care. Brook Hahn MD
[2017-08-25] MEDS: Digoxin 125 mcg (0.125 mg) Tab PO SCH (13:21)
--- NOTE | 2017-08-25 20:53 | PN ---
DATE: 08/25/2017 ENDOCRINOLOGY FOLLOWUP NOTE LOCATION: Room 327, [facility]. SUBJECTIVE: This is an 87-year-old female with recent overt thyrotoxicosis and presenting here with rapid atrial fibrillation, and since then improved clinically and hemodynamically as noted thereof. More remarkable is the fact that she also had a dramatic response of her elevated thyroid indices with the initiation of propylthiouracil medication as given. We have stopped the because of the adverse reaction to the elevation of liver transaminases noted on the outpatient by her tie fastener, Dr. Todd, in [place]. Her repeat chemistry showed a BUN of 25, sodium 141, potassium 4.1, chloride 105, CO2 of 29, glucose 84 and creatinine 0.7. The repeat thyroid studies today showed a T4 of 10.9 with a TSH of less than 0.02 and free T4 of 2.08. ASSESSMENT AND PLAN: So, at this time, we will actually modify and lower her PTU down to 100 mg p.o. b.i.d. after meals to start today as ordered. We will continue the serial chemistries and serial thyroid studies accordingly. We will hold the initiation of radioactive iodine ablation on the outpatient as a prudent decision with remarkable response to medical therapy as noted. We will follow. Katrin Walsh MD
[2017-08-26] MEDS: Budesonide 0.5 mg/2 ml Inhal Susp UD IH SCH ×2 (07:25→20:46)
[2017-08-26] MEDS: Levalbuterol 1.25 MG/3 ML Inhal Soln UD IH SCH ×3 (07:25→20:46)
--- NOTE | 2017-08-26 10:29 | PN ---
DATE: 08/26/2017 PULMONARY NOTE SUBJECTIVE: The patient appears very comfortable this morning. She is not short of breath at rest. PHYSICAL EXAMINATION: VITAL SIGNS: Temperature is 97, pulse is 75, respirations 16, blood pressure 122/60. Last oxygen saturation measured on room air - 98%. HEENT: Normocephalic, atraumatic. No JVD. CARDIOVASCULAR: Systolic ejection murmur at the lower left sternal border. No S3 gallop. LUNGS: Clear bilaterally this morning. EXTREMITIES: Mild edema. No cyanosis. No clubbing. Calves are nontender to palpation. GI: Abdomen is soft, nontender and nondistended. Bowel sounds are positive. SKIN: No acute rash. NEUROLOGIC: Limited at the present time. IMPRESSION: 1. Acute bronchitis. 2. Chronic obstructive pulmonary disease. 3. Atrial fibrillation. 4. Diabetes mellitus. PLAN: The patient appears very comfortable this morning. She is not short of breath at rest. She does state to feeling much better overall. On physical exam, her lungs are now clear. In addition, there is no significant alveolar-arterial gradient. I will continue with the current nebulizer treatments and low-dose oral steroids (decreased yesterday) for now. Inputs by Endocrine and Internal Medicine are also noted. Clinical status of the patient is significantly improved overall. I will discuss the above with Dr. Hahn. Wellington Grenee MD MTDD
[2017-08-26] MEDS: Tiotropium 18 mcg Cap For Inhalation IH SCH (10:38)
[2017-08-26] MEDS: Digoxin 125 mcg (0.125 mg) Tab PO SCH (13:17)
--- NOTE | 2017-08-26 16:50 | PN ---
DATE: 08/26/2017 ENDO FOLLOWUP NOTE LOCATION: In room 327. SUBJECTIVE: This is an 87-year-old female with recent overt hyperthyroidism noted historically, clinically and biochemically and has been started on propylthiouracil at a higher dose, which was modified to A b.i.d. dosing yesterday as noted. She remains clinically euthyroid at this time, but biochemically has evidence of early overt hyperthyroidism as noted thereof. She remains clinically euthyroid at this time and the latest chemistry showed a BUN of 25, sodium 141, potassium 4.1, chloride 105, CO2 of 29, glucose 84 and creatinine 0.7. Her glucose levels have ranged from 10.9 mcg/dL with a TSH of less than 0.02 and a free T4 of 2.08. So at this time, we will continue the modified and much lower dosing of the propylthiouracil or PTU given as 100 mg b.i.d. after meals as ordered. We will titrate incrementally as indicated to optimize metabolic control. We will obtain serial chemistries and supplement accordingly as needed. We will follow. Katrin Walsh MD
--- NOTE | 2017-08-26 18:20 | PN ---
DATE: 08/26/2017 SUBJECTIVE: An 87-year-old female sitting comfortably. She is on the transitional care unit at this time. She states that she is feeling a bit stronger today. Nursing staff relates that there were no particular problems. PHYSICAL EXAMINATION: GENERAL: Patient is alert and oriented x3. VITAL SIGNS: Oxygen saturation is 97% on room air, temperature is 98, pulse is 79, blood pressure is 104/53, respiratory rate is 18. LUNGS: Show diminished breath sounds at the bases. HEART: An irregular S1, S2 rhythm. ABDOMEN: Soft with positive bowel sounds. EXTREMITIES: Show no evidence of edema. ASSESSMENT AND PLAN: 1. The patient is being followed by Pulmonary for an exacerbation of underlying chronic obstructive pulmonary disease with acute bronchitis. Currently on bronchodilator therapy and steroids. 2. The patient is being followed by Endocrinology for her Graves disease, on propylthiouracil. She will continue this current medical management at this time and we will continue her occupational and physical therapy. 3. Her atrial fibrillation is being managed with medications at this time and she is on anticoagulation therapy as well. Brook Hahn MD
[2017-08-27] MEDS: Levalbuterol 1.25 MG/3 ML Inhal Soln UD IH SCH ×3 (07:33→19:20)
[2017-08-27] MEDS: Budesonide 0.5 mg/2 ml Inhal Susp UD IH SCH ×2 (07:33→19:20)
--- NOTE | 2017-08-27 07:54 | PN ---
DATE: 08/27/2017 PULMONARY NOTE SUBJECTIVE: The patient appears very comfortable this morning. She is not short of breath at rest. OBJECTIVE: VITAL SIGNS: Temperature is 97.8, pulse 71, respirations 16, blood pressure 98/64. Oxygen saturation on room air is 95-97%. HEENT: Normocephalic, atraumatic. No JVD. CARDIOVASCULAR: Systolic ejection murmur at the lower left sternal border. No S3 gallop. LUNGS: Clear bilaterally. EXTREMITIES: Mild edema. No cyanosis, no clubbing. Calves are nontender to palpation. GI: Abdomen is soft, nontender and nondistended. Bowel sounds are positive. SKIN: No acute rash. NEUROLOGIC: Exam limited at the present time. IMPRESSION: 1. Acute bronchitis. 2. Chronic obstructive pulmonary disease. 3. Atrial fibrillation. 4. Diabetes mellitus. PLAN: The patient appears very comfortable this morning. She is not short of breath at rest. She does state to feeling much better overall. On physical exam, her lungs remain clear. In addition, the oxygen saturation on room air is 95-97%. I will continue the current pulmonary medications and low-dose oral steroids for now. Clinical status of the patient is significantly improved overall. I will discuss the above with Dr. Hahn. Wellington Greene MD MTDD
[2017-08-27] MEDS: Tiotropium 18 mcg Cap For Inhalation IH SCH (09:12)
[2017-08-27] MEDS: Digoxin 125 mcg (0.125 mg) Tab PO SCH (13:42)
--- NOTE | 2017-08-27 15:14 | PN ---
DATE: 08/27/2017 SUBJECTIVE: The patient is an 87-year-old female on the Transitional Care Unit. Nursing staff relates that there were particular problems with the patient. She is feeling a bit better today. PHYSICAL EXAMINATION VITAL SIGNS: Temperature is 97.8, her pulse is 71, the blood pressure is 98/64, the respiratory rate is 16, her oxygen saturation is 95% on room air. GENERAL: The patient does note and report that there is a tremor in her hand and has a concern about its relationship to the thyroid. LUNGS: Clear with diminished breath sounds at the bases. HEART: S1 and S2 rhythm. ABDOMEN: Soft with positive bowel sounds. EXTREMITIES: Showed no evidence of edema. NEUROLOGIC: She is alert and oriented x3, but there is a mild tremor when she extends her hands. ASSESSMENT AND PLAN: 1. I explained to the patient we will discuss with Endocrinology. Treatment modification has been done with PTU which I have done and Dr. Lackey is recommending that she resumed the PTU on a 100 mg t.i.d. basis. She is being treated for Graves disease. 2. The patient is receiving bronchodilator therapy and steroids for her chronic obstructive pulmonary disease. 3. She is being treated for her atrial fibrillation. Her current meds consist of digoxin 0.125 mg daily, Eliquis 5 mg b.i.d., Lopressor 25 mg b.i.d., prednisone 10 mg daily, Pulmicort 0.5 mg every 12 hours, Spiriva 18 mcg daily and Xopenex 1.25 mg daily. She will continue to follow this particular medical regimen. As per Endocrinology, the PTU will be adjusted. The patient will ultimately be returning to her warehouse handler in the outside to discuss the clinical findings and settings and recommendations. Dr. Lackey's notes have been reviewed as well as the other consultants. These things have been discussed with the patient. We will continue current level of care at this time and she continues occupational and physical therapy. Brook Hahn MD
--- NOTE | 2017-08-27 21:18 | PN ---
DATE: 08/27/2017 ENDOCRINOLOGY FOLLOWUP LOCATION: In room 327, [facility]. SUBJECTIVE: This is an 87-year-old female with a known history of recent overt thyrotoxicosis with underlying Graves disease and was started on a alternative medical therapy with PTU as tolerated and given, and has now improved clinically and metabolically as noted thereof. However overnight, she noted resurgence of the very light tremors in both hands as noted. Her latest chemistry showed a BUN of 25, sodium 141, potassium 4.1, chloride 105, CO2 of 29, glucose 84 and creatinine 0.7. ASSESSMENT AND PLAN: The repeat thyroid studies have dramatically improved with a total T4 of 10.9 and a free T4 of 2.08, and a TSH of less than 0.02. The TSH suppression will continue for 3 to 6 months at this time and it is actually of her actual metabolic control of her thyroid condition. The more important parameters are the total T4 or thyroxine level as noted. With the aforementioned resurgence of the baseline essential tremors, would prudently titrate upwards once again her propylthiouracil to 100 mg p.o. t.i.d. after meals as ordered. We will repeat thyroid studies and adjust her dose regimen accordingly. Once again, we will hold off on the radioactive iodine ablation to obviate the patient developing a more complicated outpatient course of her thyroid condition when infectious responded dramatically to just conservative medical therapy as given. We will follow. Katrin Walsh MD
[2017-08-28] MEDS: Budesonide 0.5 mg/2 ml Inhal Susp UD IH SCH ×2 (07:35→19:55)
[2017-08-28] MEDS: Levalbuterol 1.25 MG/3 ML Inhal Soln UD IH SCH ×3 (07:35→19:55)
[2017-08-28 07:42] LABS: ALB/GLOB RATIO 1.2 (1.1-1.8); ALBUMIN 2.8 g/dL (3.0-4.8); ALT/SGPT 28 U/L (7-56); AST/SGOT 25 U/L (14-36); BLOOD UREA NITROGEN 20 mg/dL (7-21); GFR AFRICAN-AMERICAN > 60; GFR NON-AFRICAN AMERICAN > 60
[2017-08-28 07:48] LABS: T4 8.7 ug/dL (5.5-11.0)
--- NOTE | 2017-08-28 09:12 | PN ---
DATE: 08/28/2017 PULMONARY NOTE SUBJECTIVE: The patient appears very comfortable this morning. She is not short of breath at rest. PHYSICAL EXAMINATION VITAL SIGNS: (Last noted in the computer): Temperature is 97.5, pulse 80, respirations 16/18, blood pressure 127/50. Oxygen saturation on room air 94%-95%. HEENT: Normocephalic, atraumatic. No JVD. CARDIOVASCULAR: Systolic ejection murmur at the lower left sternal border. No S3 gallop. LUNGS: Clear bilaterally. EXTREMITIES: Mild edema. No cyanosis, no clubbing. Calves are nontender to palpation. GI: Abdomen is soft, nontender and nondistended. Bowel sounds are positive. SKIN: No acute rash. NEUROLOGIC: Limited at the present time. IMPRESSION: 1. Acute bronchitis. 2. Chronic obstructive pulmonary disease. 3. Atrial fibrillation. 4. Diabetes mellitus. PLAN: The patient appears very comfortable this morning. She is not short of breath at rest. She does state to feeling much better overall. On physical exam, her lungs remain clear. In addition, there is no significant alveolar-arterial gradient. I will continue with the current pulmonary medications and low-dose oral steroids for now. The clinical status of this patient is significantly improved overall. She is for discharge in the near future. She will not need oral steroids as an outpatient, if her status remains the same/much improved. I will discuss the above with Dr. Hahn. Wellington Greene MD MTDD
[2017-08-28] MEDS: Tiotropium 18 mcg Cap For Inhalation IH SCH (09:15)
--- NOTE | 2017-08-28 13:37 | PN ---
DATE: 08/28/2017 SUBJECTIVE: An 87-year-old female on Transitional Care Unit, receiving occupational and physical therapy. Nursing staff relates that there were no problems during night. PHYSICAL EXAMINATION: VITAL SIGNS: Her blood pressure is 121/66, her temperature is 97.5, her oxygen saturation is 94% on room air. GENERAL: She is alert and oriented x3. LUNGS: Show diminished breath sounds at the bases. HEART: Irregular S1, S2 rhythm. ABDOMEN: Soft with positive bowel sounds. EXTREMITIES: Showed no evidence of edema. NEUROLOGICAL: She is alert and oriented x3. LABORATORY DATA: The patient's electrolytes show sodium 143, potassium 4.9, chloride 105. The BUN is 20, the creatinine is 0.7. Her LFTs are normal. Her repeat TSH is less than 0.02. Her T4 is 8.7. ASSESSMENT AND PLAN: 1. New-onset atrial fibrillation. Currently on digoxin, Eliquis and Lopressor. 2. Graves disease, on propylthiouracil 100 mg t.i.d. The tremor has improved. 3. Chronic obstructive pulmonary disease with exacerbation, on Spiriva, Pulmicort, prednisone and Xopenex. 4. Deconditioned state with gait disorder. She is receiving occupational and physical therapy. The therapist recommended continuation of her protocol at this time, which has been discussed with the patient. We will continue current level of care. Brook Hahn MD
[2017-08-28] MEDS: Digoxin 125 mcg (0.125 mg) Tab PO SCH (13:49)
--- NOTE | 2017-08-28 21:11 | PN ---
DATE: 08/28/2017 ENDOCRINOLOGY FOLLOWUP NOTE LOCATION: In room 327. SUBJECTIVE: This is an 87-year-old female with recent marked hyperthyroidism and started on an alternative therapy with propylthiouracil or PTU, and has improved clinically, metabolically and biochemically as noted thereof. Her repeat thyroid studies today showed a T4 of 8.7 mcg/dL, with a TSH of less than 0.02. Her chemistry showed a BUN of 20, sodium 143, potassium 4.9, chloride 105, CO2 of 31, glucose 79 and creatinine 0.7. ASSESSMENT AND PLAN: So at this time, we will continue the same dosing which was modified to a higher dose of propylthiouracil at 100 mg p.o. t.i.d., and we will eventually lower the dosing regimen to prevent a rebound to hypothyroidism as noted thereof. With the remarkable response to medical therapy, would prudently defer or cancel the plans for radioactive iodine ablation to be done on the outpatient. This will be quite a biochemical swing of her thyroid condition from hyper to extreme hypothyroidism, which will not be safe both metabolically and also cardiovascular-marte, especially with advanced age at this time. It would be more prudent to actually keep her on medical therapy at the modified and lower dosing regimen at this time. We will obtain serial thyroid studies accordingly. Katrin Walsh MD
[2017-08-29] MEDS: Budesonide 0.5 mg/2 ml Inhal Susp UD IH SCH ×2 (07:38→19:35)
[2017-08-29] MEDS: Levalbuterol 1.25 MG/3 ML Inhal Soln UD IH SCH ×3 (07:38→19:34)
--- NOTE | 2017-08-29 08:15 | PN ---
DATE: 08/29/2017 SUBJECTIVE: The patient is resting comfortably in bed this morning. Nursing staff relates that there were no problems during the night. PHYSICAL EXAMINATION: VITAL SIGNS: Her blood pressure is 105/70, her temp is 98.7. GENERAL: She is feeling a bit better, although she states that she does feel tired. LUNGS: Clear with diminished breath sounds at the bases. HEART: An irregular S1 and S2 rhythm. ABDOMEN: Soft, scaphoid, positive bowel sounds. EXTREMITIES: No evidence of edema. NEUROLOGIC: She is alert and oriented x3. CURRENT MEDICATIONS: Consist of digoxin 0.125 mg daily, Eliquis 5 mg b.i.d., Lopressor 25 mg b.i.d., prednisone 10 mg daily, propylthiouracil 100 mg b.i.d., Pulmicort 0.5 mg every 12, Spiriva 18 mcg daily and Xopenex 1.25 mg t.i.d. ASSESSMENT: 1. The patient has new-onset atrial fibrillation. 2. She has Graves' disease. 3. She has chronic obstructive pulmonary disease. PLAN: 1. Endocrinology is currently following the patient, recommending the continuation of propylthiouracil, the dosage has been diminished and her note is noted regarding the recommendation to continue medical management. This has been discussed with the patient and the family. The patient at this time feels that she wants to return to her elementary special education teacher in [place] when she leaves the hospital, discuss management at that time. 2. She will continue her management for her atrial fibrillation and be followed up with Cardiology. 3. She will continue on her inhalation therapy for her COPD. 4. She is going to continue her occupational and physical therapy. The physical therapy note of 08/28/2017 is noted. She is ambulating better with guidance. We will continue current level of care and recommendations of the consultants. Brook Hahn MD
[2017-08-29] MEDS: Tiotropium 18 mcg Cap For Inhalation IH SCH (09:13)
[2017-08-29] MEDS: Digoxin 125 mcg (0.125 mg) Tab PO SCH (13:14)
--- NOTE | 2017-08-29 15:26 | PN ---
DATE: 08/29/2017 ENDO FOLLOWUP NOTE LOCATION: In room 327 TCU. SUBJECTIVE: This is an 87-year-old female with recent overt hyperthyroidism both historically, clinically and biochemically with remarkable improvement to medical therapy as given with subsidence of the dizziness and lightheadedness, but admits to episodic tremors at rest in both hands as noted. Her latest chemistry showed a BUN of 20, sodium 143, potassium 4.9, chloride 105, CO2 of 31, glucose 79 and creatinine 0.7. Her latest thyroid study showed a T4 of 8.7 with a TSH of less than 0.02. 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 The biggest concern at this time is the patient's insistence that she will still go for the radioactive iodine ablation in [place] with her service station helper there following this current hospital admission as noted. The remarkable response to almost near euthyroidism from medical therapy will actually defeat the purpose of the radioactive iodine ablation. The patient was found to be extremely hyperthyroid to be able to undergo a radioactive iodine scan of the thyroid whereupon they will measure the radioactive iodine uptake and this has to be extremely high for the radioactive iodine ablation to work as noted. PLAN OF MANAGEMENT: The plan of care has been discussed with the patient regarding the benefits and risks of radioactive iodine ablation and also medical therapy for the long-term. However, she is still very insistent on going for the radioactive iodine ablation following this discharge as noted. However, the only way they can do the radioactive iodine ablation in [place] would be to discontinue all the medical therapy and make her once again extremely hyperthyroid so that the radioactive iodine uptake by the thyroid scan will be extremely elevated for the iodine ablation to work effectively. We will continue the PTU at the lower and modified dose of 100 mg b.i.d. starting today until discharge and then we would highly recommend that we discontinue the PTU if indeed she has to go for radioactive iodine ablation, otherwise this will defeat the purpose of the actual benefits of radioactive iodine ablation if the patient is euthyroid or near normal. Katrin Walsh MD
[2017-08-29 16:52] VITALS: RESP 16
--- NOTE | 2017-08-29 17:32 | PN ---
DATE: 08/29/2017 PULMONARY PROGRESS NOTE SUBJECTIVE: The patient has markedly improved, waiting to go home after the weekend. She is receiving her medications and doing quite well. PHYSICAL EXAMINATION: GENERAL: She is comfortable, in no acute distress. She offers no complaints this morning. VITAL SIGNS: Stable. She is afebrile, pulse 78, respiratory rate 16, blood pressure 130/60, O2 sat 96%. HEENT: Normocephalic, atraumatic. NECK: Supple. No JVD. No lymphadenopathy. No mass. No jugular venous distention. No bruit. CARDIOVASCULAR: Regular rhythm. S1 and S2. No gallop is noted. Soft systolic ejection murmur at the lower left sternal border. PULMONARY: Lungs are clear to percussion and auscultation. Global decrease in breath sounds. ABDOMEN: Soft. Bowels sounds normoactive without mass, guarding, or rebound. No organomegaly. EXTREMITIES: No clubbing, cyanosis. Trace edema persists. SKIN: No rash or excoriation. NEUROLOGIC: No focal findings noted. IMPRESSION: 1. Status post acute bronchitis. 2. Chronic obstructive pulmonary disease. 3. Atrial fibrillation. 4. Diabetes mellitus. PLAN: Continue current medication. Lower corticosteroids. The patient needs followup as an outpatient. She has not been seen by Pulmonary in the past. I strongly suggest that the patient be changed from Spiriva HandiHaler to Spiriva Respimat device, which is easier to use, allowing the medication to get deeper into the lungs. This is not available in the hospital as of this time. Thank you for the opportunity to evaluate this patient. Please feel free to contact us if we can be of any further help in her care. Faisal Gaston MD
[2017-08-30 07:04] LABS: BASO # 0.02 K/mm3 (0.0-2.0); BASO % 0.2 % (0.0-3.0); EOS # 0.5 (0.0-0.7); EOS % 4.6 % (1.5-5.0); GRAN # 6.95 (1.4-6.5); GRAN % 62.4 % (50.0-68.0); HEMOGLOBIN 13.1 g/dL (12.0-16.0); LYMPH # 3.2 (1.2-3.4); LYMPH % 28.7 % (22.0-35.0); MEAN CELL VOLUME 91.4 fl (80.0-105.0); MEAN CORPUSCULAR HEMOGLOBIN 29.6 pg (25.0-35.0); MEAN CORPUSCULAR HGB CONC 32.3 g/dl (31.0-37.0); MEAN PLATELET VOLUME 10.8 fl (7.0-11.0); MONO # 0.5 (0.1-0.6); MONO % 4.1 % (1.0-6.0); RBC 4.43 10^6/uL (3.5-6.1); RED CELL DISTRIBUTION WIDTH 12.9 % (11.5-14.5); WHITE BLOOD COUNT 11.1 10^3/ul (4.5-11.0)
[2017-08-30 07:19] LABS: ALB/GLOB RATIO 1.3 (1.1-1.8); ALBUMIN 3.2 g/dL (3.0-4.8); ALT/SGPT 38 U/L (7-56); AST/SGOT 27 U/L (14-36); BLOOD UREA NITROGEN 19 mg/dL (7-21); CALCIUM 9.1 mg/dL (8.4-10.5); GFR AFRICAN-AMERICAN > 60; GFR NON-AFRICAN AMERICAN > 60
[2017-08-30 07:32] LABS: T3 UPTAKE 38.3 % (23.0-41.0); T4 8.3 ug/dL (5.5-11.0)
[2017-08-30] MEDS: Levalbuterol 1.25 MG/3 ML Inhal Soln UD IH SCH ×3 (07:34→19:24)
[2017-08-30] MEDS: Budesonide 0.5 mg/2 ml Inhal Susp UD IH SCH ×2 (07:34→19:24)
[2017-08-30] MEDS: Tiotropium 18 mcg Cap For Inhalation IH SCH (09:29)
[2017-08-30] MEDS: Digoxin 125 mcg (0.125 mg) Tab PO SCH (13:05)
--- NOTE | 2017-08-30 14:30 | PN ---
DATE: 08/30/2017 ENDO FOLLOWUP NOTE LOCATION: In room 327. SUBJECTIVE: This is an 87-year-old female with recent overt thyrotoxicosis and has since then improved clinically and metabolically and biochemically with the initiation of propylthiouracil as an alternative therapy because of an adverse reaction to Tapazole with elevated liver transaminases. She has since then improved remarkably with this current medical therapy as noted. Her latest chemistries showed a BUN of 19, sodium 144, potassium 5.1, chloride 105, CO2 of 31, glucose 86 and creatinine 0.8. Her latest thyroid study showed a T4 of 8.3 with a TSH of less than 0.02. So at this time, we will continue the modified dosing of propylthiouracil given as 100 mg b.i.d. as ordered. As she is still on beta blockers, should expect improvement of her episodic tremors in both hands noted. We will continue this aforementioned modified PTU dosing at 100 mg b.i.d. for inpatient management. However, as mentioned in the previous note, the patient is still very insistent on going for the radioactive iodine ablation therapy in [place] following discharge. We will, however, recommend that we eventually discontinue the aforementioned PTU if indeed she will opt for radioactive iodine ablation as she has to be quite hyperthyroid for the iodine ablation to work accordingly. Katrin Walsh MD
[2017-08-30] MEDS ORDERED: Sod Polystyrene Sulf 15 gm/60 ml Susp PO STA (15:46)
[2017-08-30 16:22] VITALS: PULSE 76; TEMP 98.5; O2SAT 96
--- NOTE | 2017-08-31 07:01 | PN ---
DATE: 08/31/2017 PULMONARY NOTE SUBJECTIVE: The patient appears very comfortable this morning. She is not short of breath at rest. OBJECTIVE: VITAL SIGNS (last noted in the computer): Temperature is 98.5, pulse 76, respirations 16, blood pressure 98/47. Oxygen saturation on room air is 96%. HEENT: Normocephalic, atraumatic. No JVD. CARDIOVASCULAR: Systolic ejection murmur at the lower left sternal border. No S3 gallop. LUNGS: Clear bilaterally. EXTREMITIES: Mild edema. No cyanosis, no clubbing. Calves are nontender to palpation. GI: Abdomen is soft, nontender, nondistended. Bowel sounds are positive. SKIN: No acute rash. NEUROLOGIC: Exam limited at the present time. IMPRESSION: 1. Acute bronchitis. 2. Chronic obstructive pulmonary disease. 3. Atrial fibrillation. 4. Diabetes mellitus. PLAN: The patient appears very comfortable this morning. She is not short of breath at rest. She does state to feeling much better overall. On physical exam, her lungs remain clear. Oxygen saturation on room air is 96%. I will continue with the current pulmonary medications/neb treatments, but discontinue the oral steroids this morning. The clinical status of the patient is significantly improved overall. She is for discharge in the near future. I will discuss the above with Dr. Hahn. Wellington Greene MD MTDArnie
[2017-08-31] MEDS: Levalbuterol 1.25 MG/3 ML Inhal Soln UD IH SCH ×2 (07:19→13:25)
[2017-08-31] MEDS: Budesonide 0.5 mg/2 ml Inhal Susp UD IH SCH (07:19)
[2017-08-31 07:34] LABS: ALB/GLOB RATIO 1.2 (1.1-1.8); ALBUMIN 2.7 g/dL (3.0-4.8); ALT/SGPT 30 U/L (7-56); AST/SGOT 21 U/L (14-36); BLOOD UREA NITROGEN 18 mg/dL (7-21); CALCIUM 8.4 mg/dL (8.4-10.5); GFR AFRICAN-AMERICAN > 60; GFR NON-AFRICAN AMERICAN > 60
[2017-08-31 07:38] VITALS: BP 104/58
[2017-08-31] MEDS: Tiotropium 18 mcg Cap For Inhalation IH SCH (09:27)
[2017-08-31] MEDS: Digoxin 125 mcg (0.125 mg) Tab PO SCH (13:57)
[2017-08-31 14:02] VITALS: PULSE 70
--- NOTE | 2017-08-31 23:15 | CON ---
DATE: 08/31/2017 REASON FOR CONSULTATION: Hyperkalemia. HISTORY OF PRESENT ILLNESS: An 87-year-old lady previously unknown to me, is seen on the Transitional Care Unit. The patient was admitted to the Transitional Care Unit on 08/22/2017. She was initially admitted to the medical site on 08/18/2017 with complaints of fatigue. In the Emergency Room, she was found to be in AFib with rapid ventricular rate. The patient has a history of paroxysmal AFib. Her beta lynn had been discontinued a few months prior to this presentation. She was treated with IV Cardizem. Subsequently, she was transferred to the Transitional Care Unit for physical therapy. The patient also has a history of hyperthyroidism. She was on methimazole, which was discontinued prior to this hospitalization also. Her PTU and her beta-lynn have been restarted. She is also being anticoagulated. On routine labs on the 08/30/2017, she was found to have an elevated potassium of 5.1 and repeat potassium was 5.6, hence consultation was requested. The patient received Kayexalate one dose yesterday. This morning, her potassium was 4.2. PAST MEDICAL AND SURGICAL HISTORY: Paroxysmal AFib, COPD, hyperthyroidism, cardiomyopathy, decreased ejection fraction of 35%. FAMILY HISTORY: Noncontributory. SOCIAL HISTORY: Ex-smoker. No alcohol use, no IV drug abuse. ALLERGIES: PENICILLIN. MEDICATIONS: Digoxin 0.125 daily, Eliquis 5 b.i.d., Lopressor 25 b.i.d., PTU 100 b.i.d., Pulmicort 0.5, Spiriva 18, and Xopenex. REVIEW OF SYSTEMS: All systems are reviewed, pertinent positives as mentioned in history of presenting illness, rest unremarkable. PHYSICAL EXAMINATION: GENERAL: Elderly lady sitting in chair. VITAL SIGNS: Blood pressure 104/58, heart rate 76, respiratory rate 16, temperature 98.5. HEENT: Normocephalic, atraumatic, positive pallor. NECK: Supple, no JVD. LUNGS: Bilateral equal entry, bilateral equal expansion, distant breath sounds, no rales. CARDIAC: S1 and S2, regular rate and rhythm, no murmur, no rub. ABDOMEN: Soft, nondistended, nontender, bowel sounds present. EXTREMITIES: A 1+ pitting edema of the lower extremities. INTAKE AND OUTPUT: Not charted. LABORATORY DATA: Sodium 144, potassium 4.2, chloride 107, CO2 of 31, BUN 18, creatinine 0.6, glucose 83, calcium 8.4. AST 21, ALT 30, albumin 2.7, globulin 2.2. Hemoglobin 13, platelets 233. Digoxin 1.1. ASSESSMENT: 1. Hyperkalemia, ? secondary to beta lynn. The patient is not on any potassium supplement. The patient is not on any ARB. Constipation is another possibility. 2. Paroxysmal atrial fibrillation, rate controlled at this time. 3. History of hyperthyroidism, on propylthiouracil. 4. History of chronic obstructive pulmonary disease. 5. Cardiomyopathy, decreased ejection fraction, edema. PLAN: 1. Currently, potassium is normal. The transient increase in potassium could have been related to constipation or restarting of the beta lynn. 2. The patient does have 1+ pitting edema, would consider low-dose Lasix, may be 20 mg daily. 3. No objection to discharge. 4. Monitor potassium as outpatient. 5. P.r.n. followup in the office Sanna Granda MD
--- NOTE | 2017-09-01 08:00 | PN ---
DATE: 08/31/2017 ENDOCRINOLOGY FOLLOWUP NOTE LOCATION: Room 327. SUBJECTIVE: This is an 87-year-old female with recent diagnosis of overt thyrotoxicosis with underlying Graves disease and has improved dramatically with the initiation of propylthiouracil therapy and is now being followed closely for metabolic management. At this time, she is scheduled for possible discharge very soon and just remains clinically and biochemically euthyroid at this time with the repeat thyroid studies showing a T4 of 8.3 with a TSH of less than 0.02. The T4 is actually normal at this time and the TSH suppression remains for 3-6 months thereafter. Her chemistry showed a BUN of 18, sodium 144, potassium 4.2, chloride 107, CO2 of 31, glucose 83, and creatinine 0.6. As discussed in the previous note, I would continue the PTU at the lower dose of 100 mg b.i.d. for now, but eventually this has to be discontinued to allow the patient to become hyperthyroid again, so the radioactive iodine ablation therapy will work effectively. The patient has opted to still go ahead with the decision by the [facility] to give her radioactive iodine ablation for definitive management of hyperthyroidism. For the assisted, it would really be simplified in terms of outpatient followup and management if the patient were actually hypothyroid, but to process would be quite a job for the patient as she is now clinically and biochemically euthyroid at this time. For her to go back to a marked hyperthyroid state would clearly be a nerve-wracking situation where we have to watch her hemodynamic and cardiovascular status as she goes hyperthyroid and hyperdynamic with sinus tachycardia once again. It would have been better at this point at least in time to allow her body to have the full dose equilibration to medical therapy with PTU and observe her future response thereof. We will follow and advice accordingly. Katrin Walsh MD
== END 2017-08-31 16:41 | disposition home or self-care (01) | DRG 92 ==
LOC: TRCU 15:56
PROVIDERS: ADMIT Internal Medicine; ATTEND Internal Medicine
PROC: F07Z9FZ Gait Training/Functional Ambulation Treatment using Assistive, Adaptive, Supportive or Protective Equipment (ICD-10-PCS; principal; 2017-08-23)
PROC: F08Z2ZZ Grooming/Personal Hygiene Treatment (ICD-10-PCS; 2017-08-23)
PROC: F08Z1FZ Dressing Techniques Treatment using Assistive, Adaptive, Supportive or Protective Equipment (ICD-10-PCS; 2017-08-23)
PROC: F07Z5ZZ Bed Mobility Treatment (ICD-10-PCS; 2017-08-24)
PROC: F07Z8ZZ Transfer Training Treatment (ICD-10-PCS; 2017-08-24)
PROC: F07L6YZ Therapeutic Exercise Treatment of Musculoskeletal System - Lower Back / Lower Extremity using Other Equipment (ICD-10-PCS; 2017-08-24)
DX: R26.9 Unspecified abnormalities of gait and mobility (principal); E05.00 Thyrotoxicosis with diffuse goiter without thyrotoxic crisis or storm; J44.1 Chronic obstructive pulmonary disease with (acute) exacerbation; I42.9 Cardiomyopathy, unspecified; J44.0 Chronic obstructive pulmonary disease with (acute) lower respiratory infection; J20.9 Acute bronchitis, unspecified; I48.0 Paroxysmal atrial fibrillation; E87.5 Hyperkalemia; I10 Essential (primary) hypertension; E11.9 Type 2 diabetes mellitus without complications; G25.0 Essential tremor; I48.2 Chronic atrial fibrillation; E78.5 Hyperlipidemia, unspecified; Z79.01 Long term (current) use of anticoagulants; Z88.0 Allergy status to penicillin; Z87.891 Personal history of nicotine dependence